=== PATIENT | female | born 1950 | race Two or more races ===

== ENCOUNTER 2016-11-27 06:01 | Observation (INO) | payer OTHER, BC ==
[2016-11-27] VITALS (11 sets, daily range): BP systolic 142–145; BP diastolic 66–99; PULSE 84–96; RESP 18; TEMP 98–98.5; O2SAT 93–96
[~2016-11-27] VITALS: Ht 162.6 cm; Wt 99.9 kg
[2016-11-27] MEDS ORDERED: LORazepam 1 MG TAB SL SCH (06:30)
[2016-11-27] MEDS ORDERED: INSULIN HUMAN REGULAR 1,000 UNITS/10 ML VIAL SQ PRN (06:30)
[2016-11-27] MEDS ORDERED: LACTATED RINGER'S 1000 ML IV SCH (06:30)
[2016-11-27] MEDS ORDERED: SODIUM CHLORID 0.9% 500 ML INJ 500 ML IV SCH (06:30)
[2016-11-27] MEDS ORDERED: SODIUM CHLORID 0.9% 500 ML IV SCH (06:30)
[2016-11-27 07:09] LABS: APTT (PATIENT) 30.8 SEC (24.3-30.1); BASOPHIL # 0.1 TH/MM3 (0-0.2); BASOPHIL % 0.7 % (0.0-2.0); EOSINOPHIL # 0.1 TH/MM3 (0-0.4); EOSINOPHIL % 1.7 % (0.0-4.0); HEMATOCRIT 45.1 % (35.0-46.0); HEMO FLAGS DIFF FINAL; LYMPH % 39.5 % (9.0-44.0); MEAN CELL VOLUME 83.3 FL (80.0-100.0); MEAN CORPUSCULAR HEMOGLOBIN 28.7 PG (27.0-34.0); MEAN CORPUSCULAR HGB CONC 34.4 % (32.0-36.0); MONO % 5.2 % (0.0-8.0); NEUT % 52.9 % (16.0-70.0); PLATELET COUNT 302 TH/MM3 (150-450); PROTHROMBIN TIME - PATIENT 10.5 SEC (9.8-11.6); RED BLOOD COUNT 5.41 MIL/MM3 (4.00-5.30); RED CELL DISTRIBUTION WIDTH 13.3 % (11.6-17.2); WHITE BLOOD COUNT 7.5 TH/MM3 (4.0-11.0)
[2016-11-27] MEDS ORDERED: PROTAMINE SULFATE 50 MG/5 ML VIAL ONE (07:12)
[2016-11-27] MEDS ORDERED: fentaNYL CITRATE 250 MCG/5 ML AMP ONE (07:12)
[2016-11-27] MEDS ORDERED: HEPARIN-D5W INJ 250 ML ONE (07:12)
[2016-11-27] MEDS ORDERED: FUROSEMIDE 40 MG/4 ML VIAL ONE (07:12)
[2016-11-27] MEDS ORDERED: ISOPROTERENOL HCL 1 MG/5 ML AMP ONE (07:12)
[2016-11-27] MEDS ORDERED: SODIUM CHLOR 0.9% 250 ML INJ 250 ML ONE (07:13)
[2016-11-27] MEDS ORDERED: HEPARIN SODIUM - IV 10,000 UNITS/10 ML VIAL ONE (07:13)
[2016-11-27] MEDS ORDERED: LEVOFLOXACIN 500 MG PREMIX INJ 100 ML IV SCH (07:15)
[2016-11-27 07:32] LABS: BICARBONATE 26.7 MEQ/L (21.0-32.0); POTASSIUM 3.7 MEQ/L (3.5-5.1)
[2016-11-27] MEDS ORDERED: MIDAZOLAM HCL 2 MG/2 ML VIAL ONE (07:35)
[2016-11-27] MEDS ORDERED: HEPARIN-NS/PF INJ 500 ML ONE (07:43)
[2016-11-27] MEDS ORDERED: MULT1TAB84 PO (08:11)
[2016-11-27] MEDS ORDERED: APIX5TAB PO (08:11)
[2016-11-27] MEDS ORDERED: LEVO75TA3 PO (08:11)
[2016-11-27] MEDS ORDERED: CHOL400D2 PO (08:11)
[2016-11-27] MEDS ORDERED: DILT1TAB4 PO (08:11)
[2016-11-27] MEDS ORDERED: ROSU20 PO (08:11)
--- NOTE | 2016-11-27 10:25 | PD.CARD ---
Atrial Fibrillation Ablation PROCEDURE DATE: Nov 27, 2016 PROCEDURES PERFORMED: 1. Electrophysiology study on Isuprel infusion 2. CS cannulation 3. 3-D mapping 4. Transseptal approach 5. Right and left heart catheterization 6. Intracardiac echo 7. Radiofrequency ablation of atrial fibrillation 8. Pulmonary vein isolation 9. Posterior wall ablation 10. Mitral line creation 11. Left atrial tachycardia ablation 12. Roof line creation 13. Floor line creation 14. Anterior and posterior wall ablation INDICATIONS FOR THE PROCEDURE Ms. Odom is a 66-year-old Other female with atrial fibrillation, on anticoagulation, multiple medications, very symptomatic who was referred for electrophysiology study and ablation. The risks, the nature and the benefits of the procedure were clearly stated to her. The risks include pneumothorax, cardiac perforation, stroke, need for open heart surgery and even . The patient understood and agreed to proceed. DESCRIPTION OF THE PROCEDURE IN DETAIL As written informed consent was obtained prior to esophageal echocardiogram, the patient was kept on the table where she was prepped and draped in the usual sterile fashion. Conscious sedation was initiated and maintained throughout the procedure by the anesthesiologist. Once sedation was verified, the right and left inguinal areas were anesthetized with 2% Xylocaine. Using modified Seldinger technique, the left femoral vein was cannulated on three occasions, three guidewires were advanced. Over the wire a 6, 7 and a 10-Brazilian Hemaquet were advanced. Then the left femoral artery was cannulated on one occasion, one guidewire was advanced. Over the wire a 4-Brazilian Hemaquet was advanced. Then the right femoral vein was cannulated on one occasion, one guidewire was advanced. Over the wire a 8-Brazilian Hemaquet was advanced. Then under fluoroscopic guidance through the 6 and 7-Brazilian Hemaquet, two 5-Brazilian Kyle curved quadripolar electrophysiology catheters were advanced and placed around the His as well as coronary sinus. Basic interval was measured. The patient was in atrial fibrillation. Through the 10-Brazilian Hemaquet, a Cordis Benavides AcuNav intracardiac echo catheter was advanced and placed at the right atrium. Multiple view was obtained. There is pericardial effusion, pulmonary vein was seen, atrial septal was visualized. Then the 8-Brazilian Hemaquet in the right femoral vein was exchanged for Agilis transseptal sheath that was placed all the way to the superior vena cava. Through the sheath a Babatunde needle was advanced, then the sheath, the dilator and the needle were progressed until foci engaged. Once engaged, the needle was advanced. RF was delivered for 2 seconds. I was able to cross into the left atrium. Once the needle crossed, the dilator was advanced. Once the dilator crossed, the sheath was advanced. Once the sheath crossed, the dilator and the needle were removed. At this point I did flush the system and fluid movement was seen in the left atrium the indicates the sheath is in good position. The patient already received 10,000 units of heparin. The goal is to keep an ACT around 350 during ablation. Then through the sheath a [place] 20 pulse circumferential catheter was advanced. Using [employer] endocardial solution mapping system, a two-dimensional configuration of the left atrium was obtained. Points were taken at the left superior and inferior veins, right superior and inferior veins, mitral valve, and appendages. Then through the sheath a [place]. [place] TactiCath 65cm 3.5mm irrigated tipped mapping and radiofrequency ablation catheter was advanced. Esophageal probe was placed temperature monitoring during ablation. When it increased to 0.5 degrees Celsius above baseline, I moved to a different area of the atrium. First I did isolate the left superior and inferior vein. I did make a big marshall around the veins. Posterior wall was ablated. A floor line was created. Patient was in atrial tach. During ablation, patient converted into sinus rhythm. Then a roof line was created, a mitral line was created earlier. Then the right superior and inferior veins were isolated. I did remap the atrium. I did advance the circumferential catheter again into the vein. There was no signal into the vein, pacing from the vein showed no conduction to the atrium. Isuprel infusion was initiated at 20 mcg for over 10 minutes. No tachyarrhythmia was induced, post Isuprel no tachyarrhythmia was induced. At that point the procedure was complete. All catheters were removed, atrial septal sheath was exchanged for 9-Brazilian Hemaquet, intracardiac echo showed no pericardial effusion. There is still good flow in the pulmonary vein. The patient is going to be transferred to the recovery room. No incident report. The patient tolerated the procedure. Blood loss was minimal. FINDINGS 1. Electrocardiogram: At baseline the patient was in atrial fibrillation, post procedure the patient was in sinus rhythm. 2. Basic interval: Base cycle length was around 580. Post ablation she was around 860 milliseconds. AH at 100 and HV at 45 milliseconds. 3. Tachyarrhythmia: Atrial fibrillation was mapped and ablated. Atrial tachycardia was ablated. The ablation was successful. CONCLUSION Successful electrophysiology study, mapping, radiofrequency ablation of atrial fibrillation, left atrial tachycardia, pulmonary vein isolation, posterior ablation, mitral line creation, roof line creation, floor line creation, left atrial tachycardia. COMMENTS AND RECOMMENDATIONS The patient is going to be transferred to the telemetry unit. Will be observed and when stable can be discharged home. Josep Medina MD Nov 27, 2016 10:25
[2016-11-27] MEDS ORDERED: SODIUM CHLOR 0.9% 250 ML INJ 250 ML IV PRN (10:30)
[2016-11-27] MEDS ORDERED: ATROPINE SULFATE 1 MG/ML VIAL IV PRN (10:30)
[2016-11-27] MEDS ORDERED: BACITRACIN OINT 0.9 GM PKT TOP ONE (10:30)
[2016-11-27] MEDS ORDERED: oxyCODONE/ACETAMINOPHEN 5 MG/325 MG TAB PO PRN ×2 (10:30)
[2016-11-27] MEDS ORDERED: LIDOCAINE HCL 1% 50 ML VIAL INFIL PRN (10:30)
[2016-11-27] MEDS ORDERED: METOCLOPRAMIDE HCL 10 MG/2 ML VIAL IV PRN (10:30)
[2016-11-27] MEDS ORDERED: ONDANSETRON HCL 4 MG/2 ML VIAL IV PRN (10:30)
[2016-11-27] MEDS ORDERED: LORazepam 2 MG/ML VIAL IV PRN (10:30)
--- NOTE | 2016-11-27 10:36 | ETE ---
Study Study Date:11/27/2016 STUDY CONCLUSIONS SUMMARY - Left ventricle: The cavity size was normal. Wall thickness was normal. Systolic function was normal. The estimated ejection fraction was in the range of 60% to 65%. Wall motion was normal; there were no regional wall motion abnormalities. - Aortic valve: No evidence of vegetation. - Mitral valve: No evidence of vegetation. - Left atrium: The atrium was moderately dilated. No evidence of thrombus in the atrial cavity or appendage. No evidence of thrombus in the atrial cavity or appendage. - Right atrium: No evidence of thrombus in the atrial cavity or appendage. - Atrial septum: No defect or patent foramen ovale was identified. Echo contrast study showed no [id number] atrial level shunt, at baseline or with provocation. - Tricuspid valve: No evidence of vegetation. - Pulmonic valve: No evidence of vegetation. If LV function is below 40, please consider prescribing an ACEI or ARB or document rationale for non-use. PROCEDURE DATA Consent: The risks, benefits, and alternatives to the procedure were explained to the patient and informed consent was obtained. Procedure: Initial setup. The patient was brought to the laboratory in the fasting state. Intravenous access was obtained. Surface ECG leads and pulse oximetric signals were monitored. Sedation. Conscious sedation was administered by cardiology staff. Transesophageal echocardiography. Topical anesthesia was obtained using viscous lidocaine. A transesophageal probe was inserted by the attending software quality analyst. Image quality was good. Study completion: All IVs inserted during the procedure were removed. The patient tolerated the procedure well. There were no complications. Transesophageal echocardiography. 2D, complete spectral Doppler, and color Doppler. CARDIAC ANATOMY LEFT VENTRICLE: The cavity size was normal. Wall thickness was normal. Systolic function was normal. The estimated ejection fraction was in the range of 60% to 65%. Wall motion was normal; there were no regional wall motion abnormalities. AORTIC VALVE: Trileaflet; moderately thickened, moderately calcified leaflets. Cusp separation was normal. No evidence of vegetation. Doppler: No significant regurgitation. Aorta: - There was no atheroma. There was no evidence for dissection. Aortic root: The aortic root was not dilated. Ascending aorta: The ascending aorta was normal in size. Aortic arch: The aortic arch was normal in size. Descending aorta: The descending aorta was normal in size. MITRAL VALVE: Structurally normal valve. Leaflet separation was normal. No evidence of vegetation. Doppler: No significant regurgitation. LEFT ATRIUM: The atrium was moderately dilated. No evidence of thrombus in the atrial cavity or appendage. No evidence of thrombus in the atrial cavity or appendage. The appendage was morphologically a left appendage, multilobulated, and of normal size. Emptying velocity was normal. ATRIAL SEPTUM: No defect or patent foramen ovale was identified. Echo contrast study showed no [id number] atrial level shunt, at baseline or with provocation. RIGHT VENTRICLE: The cavity size was normal. Wall thickness was normal. Systolic function was normal. PULMONIC VALVE: Structurally normal valve. No evidence of vegetation. TRICUSPID VALVE: Structurally normal valve. Leaflet separation was normal. No evidence of vegetation. Doppler: No significant regurgitation. PULMONARY ARTERY: The main pulmonary artery was normal-sized. RIGHT ATRIUM: The atrium was normal in size. No evidence of thrombus in the atrial cavity or appendage. The appendage was morphologically a right appendage. PERICARDIUM: There was no pericardial effusion. Prepared and signed by Josep Medina [id number]
[2016-11-27] MEDS ORDERED: *ONDANSETRON 4 MG VIAL PERIprocedural Use ONLY ONE (10:46)
[2016-11-27] MEDS ORDERED: *PROMETHAZINE 25 MG/ML VIAL PERIprocedural use ONLY ONE (11:00)
[2016-11-27] MEDS ORDERED: SODIUM CHLOR 0.9% 1000 ML BAG IV ONE (11:26)
[2016-11-27] MEDS ORDERED: PROPOFOL 200 MG/20 ML AMP IV ONE (11:26)
--- NOTE | 2016-11-27 12:35 | EKG ---
Date Performed: 11/27/2016 Time Performed: 07:08:58 PTAGE: 66 years EKG: Atrial fibrillation. Possible anteroseptal infarct - age undetermined Inferior/lateral T wa ve changes are nonspecific Abnormal ECG NO PREVIOUS TRACING DOCTOR: Fly Morton Interpretating Date/Time 11/27/2016 12:31:07
[2016-11-27] MEDS ORDERED: traMADol HCL 50 MG TAB PO PRN ×2 (12:45)
[2016-11-27] MEDS ORDERED: OXYC1TAB63 PO (18:39)
[2016-11-27] MEDS: AMIODARONE 200 MG TAB PO SCH (20:26)
[2016-11-27] MEDS: APIXABAN 5 MG TABLET PO SCH (20:26)
[2016-11-27] MEDS ORDERED: ACETAMINOPHEN/HYDROcodone 325 MG/10 MG TAB PO PRN ×2 (22:15)
[2016-11-28] VITALS (13 sets, daily range): BP systolic 106–110; BP diastolic 68–86; PULSE 76–104; RESP 18; TEMP 98.2–98.9; O2SAT 90–93
[2016-11-28] MEDS ORDERED: LEVOTHYROXINE SODIUM 75 MCG TAB PO SCH (06:00)
[2016-11-28] MEDS ORDERED: AMIO200T PO ×2 (08:03)
[2016-11-28] MEDS: APIXABAN 5 MG TABLET PO SCH (08:19)
[2016-11-28] MEDS: AMIODARONE 200 MG TAB PO SCH (08:20)
[2016-11-28] MEDS ORDERED: ATORVASTATIN 40 MG TAB PO SCH (09:00)
[2016-11-28] MEDS ORDERED: MULTIVITAMINS/MINERALS THERAPEUTIC TAB PO SCH (09:00)
--- NOTE | 2016-11-28 14:21 | EKG ---
Date Performed: 11/28/2016 Time Performed: 05:00:38 PTAGE: 66 years EKG: Atrial fibrillation Anterior T wave changes are nonspecific Low QRS voltages in precordial leads Compared to the previous tracing, atrial fibrillation has recurred Clinical correlation is carlos mmended Abnormal ECG PREVIOUS TRACING : 11/27/2016 11.43 DOCTOR: Edward Carreno Interpretating Date/Time 11/28/2016 14:21:17
--- NOTE | 2016-11-28 14:21 | EKG ---
Date Performed: 11/27/2016 Time Performed: 11:43:46 PTAGE: 66 years EKG: Sinus rhythm NONSPECIFIC T-WAVE ABNORMALITY BORDERLINE ECG Compared to the PREVIOUS TRACING , sinus rhythm has replaced atrial fibrillation PREVIOUS TRACIN2016 07.08 DOCTOR: Edward Carreno Interpretating Date/Time 11/28/2016 14:21:00
--- NOTE | 2016-11-28 15:17 | PD.CARD.PN ---
Subjective Subjective Remarks Feels ok. Objective Vital Signs / I&O Vital Signs Date Time Temp Pulse Resp B/P Pulse Ox O2 Delivery O2 Flow Rate FiO2 11/28/16 10:00 80 11/28/16 09:00 78 11/28/16 09:00 85 11/28/16 08:24 98.6 76 18 106/68 93 11/28/16 08:24 93 Room Air 11/28/16 08:00 83 11/28/16 07:00 85 11/28/16 06:30 84 11/28/16 05:00 78 11/28/16 04:00 76 11/28/16 03:23 Room Air 11/28/16 03:00 98.9 82 106/86 90 11/28/16 03:00 85 11/28/16 02:00 104 11/28/16 01:00 90 11/28/16 00:48 Room Air 11/28/16 00:38 98.2 91 110/78 91 11/28/16 00:00 90 11/27/16 23:00 92 11/27/16 22:00 96 11/27/16 21:00 94 11/27/16 20:00 90 11/27/16 19:00 98.5 92 142/66 93 11/27/16 19:00 Room Air 11/27/16 19:00 96 11/27/16 17:00 92 11/27/16 16:08 90 I/O 11/27/16 11/27/16 11/27/16 11/28/16 11/28/16 11/28/16 07:00 15:00 23:00 07:00 15:00 23:00 Intake Total 1700 ml 100 ml 240 ml 240 ml Output Total 480 ml 350 ml 350 ml Balance 1220 ml -250 ml -110 ml 240 ml Intake Oral 0 ml 100 ml 240 ml 240 ml IV Total 500 ml Other 1200 ml Output Urine Total 430 ml 350 ml 350 ml Estimated Blood Loss 50 ml # Voids 1 Physical Exam GENERAL: Well-nourished, well-developed patient. SKIN: Warm and dry. Groin sites soft, no bleeding, mild bruise on Left groin. HEAD: Normocephalic. EYES: No scleral icterus. No injection or drainage. NECK: Supple, trachea midline. No JVD or lymphadenopathy. CARDIOVASCULAR: Regular rate and rhythm without murmurs, gallops, or rubs. RESPIRATORY: Breath sounds equal bilaterally. No accessory muscle use. GASTROINTESTINAL: Abdomen soft, non-tender, nondistended. EXTREMITIES: No cyanosis, or edema. NEUROLOGICAL: Awake, alert, and oriented x 3. Non-focal. Assessment and Plan Problem List: (1) Atrial fibrillation Assessment and Plan: NSR on tele today. Initiate amiodarone per Dr. Medina. (2) S/P ablation of atrial fibrillation Assessment and Plan: Groin sites soft, ok to DC home. DC instructions d/w pt, RN. All questions answered. Assessment and Plan D/W Dr. Medina, pt., RN. Problem Qualifiers (1) Atrial fibrillation: Qualified Code: I48.0 - Paroxysmal atrial fibrillation Mary Perez Nov 28, 2016 15:17
[2016-12-02] MEDS ORDERED: AMIODARONE 200 MG TAB PO SCH (09:00)
== END 2016-11-28 11:38 | disposition home or self-care (01) ==
LOC: HDOC 06:01 → HDIC 06:01 → HCIS 13:51 → HDOC 18:29
PROVIDERS: ADMIT Internal Medicine Interventional Cardiology; ATTEND Internal Medicine Interventional Cardiology
DX: I48.0 Paroxysmal atrial fibrillation (principal); I31.3 Pericardial effusion (noninflammatory); E03.9 Hypothyroidism, unspecified; R73.03 Prediabetes; R06.02 Shortness of breath; Z79.01 Long term (current) use of anticoagulants
CPT/HCPCS: 80048; 85002; 85025; 85610; 85730; 86850; 86900; 86901; 93005; 93312; 93320; 93325; 93613; 93623; 93656; 93662; C1730; C1731; C1732; C1759; C1766; C2630; G0378; J1644; J1940; J1956; J2250; J2405; J2550; J2720; J3010; J7030; J7050

== ENCOUNTER 2016-12-01 11:07 | Observation (INO) | payer OTHER, BC ==
[~2016-12-01] VITALS: Ht 162.6 cm; Wt 100.0 kg
[~2016-12-01 11:07] MED LIST: AMIO200T PO; APIX5TAB PO; CHOL400D2 PO; LEVO75TA3 PO; MULT1TAB84 PO; OXYC1TAB63 PO; ROSU20 PO
[2016-12-01 11:10] VITALS: BP 170/97; PULSE 84; RESP 24; TEMP 97.8; O2SAT 93
[2016-12-01 11:35] VITALS: BP 160/88; PULSE 85; RESP 21; TEMP 98.4; O2SAT 96
[2016-12-01] MEDS ORDERED: SODIUM CHLORIDE 0.9% FLUSH 5 ML FLUSH IVF PRN (11:45)
--- NOTE | 2016-12-01 11:48 | PD ---
HPI Chief Complaint: Chest Pain Time Seen by Provider: 11:40 Travel History International Travel<30 days: No Contact w/Intl Traveler<30days: No Traveled to known affect area: No History of Present Illness HPI 66-year-old female presents to the emergency department for evaluation of chest tightness that started on Sunday, 2 days ago and shortness of breath that started yesterday. Patient states the chest tightness is worse with deep breathing. She states it radiates around the right side to the back. Patient reports cardiac ablation done on Sunday, [address] Medina for atrial fibrillation. She was also recently started on amiodarone. Patient also states she is on Eliquis and did not need to stop this for the procedure. She denies any history of DVT or PE. No recent travel. She has a cough, but no hemoptysis. She denies any leg edema. Patient does appear anxious on exam. She is on Crestor for hyperlipidemia. She denies any abdominal pain. No nausea or vomiting. No syncope. She does report some dizziness. PFSH Past Medical History Cancer: No Cardiovascular Problems: Yes Chest Pain: No Diabetes: Yes (PREDIABETIC) Gastrointestinal Disorders: No Glaucoma: No Hepatitis: No Hiatal Hernia: No Hypertension: No Respiratory: Yes (SOB) Integumentary: No Thyroid Disease: Yes (HYPOTHYROID) Social History Alcohol Use: No Tobacco Use: No Substance Use: No Allergies-Medications (Allergen,Severity, Reaction): Coded Allergies: Bactrim (Verified Allergy, Severe, 11/27/16) Percocet (Verified Adverse Reaction, Mild, Nausea/Vomiting, 11/27/16) Reported Meds & Prescriptions Reported Meds & Active Scripts Active Amiodarone (Amiodarone HCl) 200 Mg Tab 200 Mg PO DAILY 30 Days Amiodarone (Amiodarone HCl) 200 Mg Tab 400 Mg PO Q12HR 5 Days Reported Vitamin D (Cholecalciferol) 400 Unit/Ml Drops Unknown Dose PO DAILY Multivitamin Adults (Multiple Vitamins W/ Minerals) 1 Tab 1 Tab PO DAILY Levothyroxine (Levothyroxine Sodium) 75 Mcg Tab 75 Mcg PO DAILY Eliquis (Apixaban) 5 Mg Tab 5 Mg PO BID Crestor (Rosuvastatin Calcium) 20 Mg Tab 20 Mg PO DAILY Review of Systems Except as stated in HPI: all other systems reviewed are Neg Physical Exam Narrative GENERAL: Well-developed well-nourished female patient, ambulatory. Afebrile. Patient is anxious, crying because she states that she is scared of needles. SKIN: Warm and dry. Ecchymosis noted to groin, but tissues are soft. HEAD: Normocephalic. Atraumatic. EYES: No scleral icterus. No injection or drainage. NECK: Supple, trachea midline. No JVD or lymphadenopathy. CARDIOVASCULAR: Regular rate and rhythm without murmurs, gallops, or rubs. Bilateral radial and pedal pulses 2+. RESPIRATORY: Breath sounds equal bilaterally. No accessory muscle use. Lungs sounds are clear to auscultation. GASTROINTESTINAL: Abdomen soft, non-tender, nondistended. MUSCULOSKELETAL: No cyanosis, or edema. BACK: Nontender without obvious deformity. No CVA tenderness. Data Data Last Documented VS Vital Signs Date Time Temp Pulse Resp B/P Pulse Ox O2 Delivery O2 Flow Rate FiO2 12/01/16 12:06 96 12/01/16 12:05 184/88 163/96 12/01/16 12:01 Nasal Cannula 2 12/01/16 11:35 98.4 85 21 96 Orders Electrocardiogram (12/01/16 ) Basic Metabolic Panel (Bmp) (12/01/16 11:39) Ckmb (Isoenzyme) Profile (12/01/16 11:39) Complete Blood Count With Diff (12/01/16 11:39) Magnesium (Mg) (12/01/16 11:39) Prothrombin Time / Inr (Pt) (12/01/16 11:39) Act Partial Throm Time (Ptt) (12/01/16 11:39) Troponin I (12/01/16 11:39) Chest, Single Ap (12/01/16 11:39) Ecg Monitoring (12/01/16 11:39) Bilateral Bp Monitoring (12/01/16 11:39) Iv Access Insert/Monitor (12/01/16 11:39) Oximetry (12/01/16 11:39) Oxygen Administration (12/01/16 11:39) Sodium Chloride 0.9% Flush (Ns Flush) (12/01/16 11:45) Consult Cardiology (12/01/16 ) (Hub Use Only)Inp Phy Cons/Ref (12/01/16 ) Labs Laboratory Tests Test 3/3/17 12:20 White Blood Count 7.5 TH/MM3 Red Blood Count 4.89 MIL/MM3 Hemoglobin 14.0 GM/DL Hematocrit 40.6 % Mean Corpuscular Volume 83.0 FL Mean Corpuscular Hemoglobin 28.6 PG Mean Corpuscular Hemoglobin 34.5 % Concent Red Cell Distribution Width 13.2 % Platelet Count 299 TH/MM3 Mean Platelet Volume 8.1 FL Neutrophils (%) (Auto) 65.4 % Lymphocytes (%) (Auto) 27.3 % Monocytes (%) (Auto) 5.4 % Eosinophils (%) (Auto) 1.4 % Basophils (%) (Auto) 0.5 % Neutrophils # (Auto) 4.9 TH/MM3 Lymphocytes # (Auto) 2.0 TH/MM3 Monocytes # (Auto) 0.4 TH/MM3 Eosinophils # (Auto) 0.1 TH/MM3 Basophils # (Auto) 0.0 TH/MM3 CBC Comment DIFF FINAL Differential Comment Prothrombin Time 10.7 SEC Prothromb Time International 1.0 RATIO Ratio Activated Partial 30.1 SEC Thromboplast Time Sodium Level 140 MEQ/L Potassium Level 4.1 MEQ/L Chloride Level 103 MEQ/L Carbon Dioxide Level 27.2 MEQ/L Anion Gap 10 MEQ/L Blood Urea Nitrogen 12 MG/DL Creatinine 1.11 MG/DL Estimat Glomerular Filtration 49 ML/MIN Rate Random Glucose 132 MG/DL Calcium Level 9.5 MG/DL Magnesium Level 1.9 MG/DL Total Creatine Kinase 83 U/L Troponin I 0.18 NG/ML MDM Medical Decision Making Medical Screen Exam Complete: Yes Emergency Medical Condition: Yes Medical Record Reviewed: Yes Differential Diagnosis Anxiety versus ACS versus pneumonia versus pneumothorax versus pleurisy Narrative Course 66-year-old female presents to the emergency department for evaluation of chest tightness for 2 days that is worse with deep breathing as well as shortness of breath that started yesterday. Patient had cardiac ablation done on Sunday by Dr. Medina. EKG shows sinus rhythm, heart rate 85, no acute ST changes. CBC, BMP, CK, troponin, magnesium, PTT, PT/INR, chest x-ray are ordered and pending. CBC shows no acute abnormality. BMP shows creatinine of 1.11, glucose 132. CK is 83. Troponin is 0.18. Magnesium is 1.9. Coags are unremarkable. Chest x- ray shows no acute disease. Borderline cardiomegaly. Dr. Medina is paged. After multiple pages, he has not yet returned page. A consult is placed. Dr. Monte accepted admission. Diagnosis Primary Impression: Chest pain Qualified Code: R07.9 - Chest pain, unspecified type Additional Impression: Elevated troponin I level Admitting Information Admitting Physician Requests: Patsy Ferguson Dec 01, 2016 11:47
--- NOTE | 2016-12-01 12:04 | RADRPT ---
EXAM DATE/TIME: 12/01/2016 11:37 [facility] COMPARISON: No previous studies available for comparison. INDICATIONS : Pain in middle of chest for 3 days, former smoker, no chest surgery, patient is short of breath MEDICAL HISTORY : None. SURGICAL HISTORY : None. ENCOUNTER: Initial ACUITY: 3 days PAIN SCORE: 7/10 LOCATION: Bilateral chest FINDINGS: A single view of the chest demonstrates the lungs to be symmetrically aerated without evidence of mas s, infiltrate or effusion. Heart borderline enlarged. The cardiomediastinal contours are unremarkable . Osseous structures are intact. CONCLUSION: No acute disease. Borderline cardiomegaly. Denis Peralta MD on December 01, 2016 at 11:59 Board Certified Radiologist. This report was verified electronically.
[2016-12-01 12:05] VITALS: BP_SYST 163; BP_SYST 184; BP_DIAS 88; BP_DIAS 96
[2016-12-01 13:15] LABS: AUTOMATED NEUTROPHIL # 4.9 TH/MM3 (1.8-7.7); BASOPHIL % 0.5 % (0.0-2.0); EOSINOPHIL # 0.1 TH/MM3 (0-0.4); EOSINOPHIL % 1.4 % (0.0-4.0); HEMATOCRIT 40.6 % (35.0-46.0); HEMO FLAGS DIFF FINAL; LYMPH % 27.3 % (9.0-44.0); MEAN CORPUSCULAR HEMOGLOBIN 28.6 PG (27.0-34.0); MEAN CORPUSCULAR HGB CONC 34.5 % (32.0-36.0); MONO % 5.4 % (0.0-8.0); NEUT % 65.4 % (16.0-70.0); PLATELET COUNT 299 TH/MM3 (150-450); RED BLOOD COUNT 4.89 MIL/MM3 (4.00-5.30); RED CELL DISTRIBUTION WIDTH 13.2 % (11.6-17.2); WHITE BLOOD COUNT 7.5 TH/MM3 (4.0-11.0)
[2016-12-01 13:22] LABS: APTT (PATIENT) 30.1 SEC (24.3-30.1); PROTHROMBIN TIME - PATIENT 10.7 SEC (9.8-11.6)
[2016-12-01 13:33] LABS: BICARBONATE 27.2 MEQ/L (21.0-32.0); MAGNESIUM 1.9 MG/DL (1.5-2.5); POTASSIUM 4.1 MEQ/L (3.5-5.1)
--- NOTE | 2016-12-01 14:00 | PD ---
Physical Exam Narrative I, Dr. Moore, have reviewed the advance practice practitioner's documentation and am in agreement, met with the patient face to face, made the diagnosis, and the medical decision making was done by me. *My assessment and Findings: Chest pain r/o ACS 66yo F with PMH of HLD, afib s/p ablation by Dr. Fernandes 4 days ago presents to the ED with c/o chest pain for 2 days. Pain is midsternal, pressure like, intermittent and lasts few minutes at a time. Associated with sob. Denies any fever, vomiting, abdominal pain, focal weakness or numbness. States she never had chest pain like this before. Pt is a former cig smoker. Pt is on eliquis for afib and also was started on amiodarone. Pt currently does not have chest pain. Labs reviewed, no leukocytosis. Troponin is mildly elevated at 0.18. This may be normal from ablation 4 days ago but pt has new chest pain for 2 days. CXR showed no acute disease. Borderline cardiomegaly. I was not able to reach Dr. Fernandes so discussed with hospitalist to observe pt and obtain serial EKG and cardiac enzyme. Cardiology consult to be placed. Data Data Last Documented VS Vital Signs Date Time Temp Pulse Resp B/P Pulse Ox O2 Delivery O2 Flow Rate FiO2 12/01/16 12:06 96 12/01/16 12:05 184/88 163/96 12/01/16 12:01 Nasal Cannula 2 12/01/16 11:35 98.4 85 21 96 Orders Electrocardiogram (12/01/16 ) Basic Metabolic Panel (Bmp) (12/01/16 11:39) Ckmb (Isoenzyme) Profile (12/01/16 11:39) Complete Blood Count With Diff (12/01/16 11:39) Magnesium (Mg) (12/01/16 11:39) Prothrombin Time / Inr (Pt) (12/01/16 11:39) Act Partial Throm Time (Ptt) (12/01/16 11:39) Troponin I (12/01/16 11:39) Chest, Single Ap (12/01/16 11:39) Ecg Monitoring (12/01/16 11:39) Bilateral Bp Monitoring (12/01/16 11:39) Iv Access Insert/Monitor (12/01/16 11:39) Oximetry (12/01/16 11:39) Oxygen Administration (12/01/16 11:39) Sodium Chloride 0.9% Flush (Ns Flush) (12/01/16 11:45) Consult Cardiology (12/01/16 ) (Hub Use Only)Inp Phy Cons/Ref (12/01/16 ) Admit Order (Ed Use Only) (12/01/16 16:06) Labs Laboratory Tests Test 12/01/16 12:20 White Blood Count 7.5 TH/MM3 Red Blood Count 4.89 MIL/MM3 Hemoglobin 14.0 GM/DL Hematocrit 40.6 % Mean Corpuscular Volume 83.0 FL Mean Corpuscular Hemoglobin 28.6 PG Mean Corpuscular Hemoglobin 34.5 % Concent Red Cell Distribution Width 13.2 % Platelet Count 299 TH/MM3 Mean Platelet Volume 8.1 FL Neutrophils (%) (Auto) 65.4 % Lymphocytes (%) (Auto) 27.3 % Monocytes (%) (Auto) 5.4 % Eosinophils (%) (Auto) 1.4 % Basophils (%) (Auto) 0.5 % Neutrophils # (Auto) 4.9 TH/MM3 Lymphocytes # (Auto) 2.0 TH/MM3 Monocytes # (Auto) 0.4 TH/MM3 Eosinophils # (Auto) 0.1 TH/MM3 Basophils # (Auto) 0.0 TH/MM3 CBC Comment DIFF FINAL Differential Comment Prothrombin Time 10.7 SEC Prothromb Time International 1.0 RATIO Ratio Activated Partial 30.1 SEC Thromboplast Time Sodium Level 140 MEQ/L Potassium Level 4.1 MEQ/L Chloride Level 103 MEQ/L Carbon Dioxide Level 27.2 MEQ/L Anion Gap 10 MEQ/L Blood Urea Nitrogen 12 MG/DL Creatinine 1.11 MG/DL Estimat Glomerular Filtration 49 ML/MIN Rate Random Glucose 132 MG/DL Calcium Level 9.5 MG/DL Magnesium Level 1.9 MG/DL Total Creatine Kinase 83 U/L Troponin I 0.18 NG/ML [facility] Supervised Visit with PRIYANK: Yes Interpretation(s) EKG: NSR 85bpm. Normal axis. Q wave V1, V2. Low voltage. Diagnosis Primary Impression: Chest pain Qualified Code: R07.9 - Chest pain, unspecified type Additional Impression: Elevated troponin I level Admitting Information Admitting Physician Requests: Observation Scripts Omeprazole 40 Mg Cap40 Mg PO DAILY #30 CAP Ref 0 Prov:Ab Monte DO 12/01/16 Amiodarone 200 Mg [id number] Mg PO BID #4 TAB Ref 0 Prov:Ab Monte DO 12/01/16 Charlene Moore DO Dec 01, 2016 14:00
--- NOTE | 2016-12-01 16:51 | PD.CARD.PN ---
Subjective Subjective Remarks Pt reports CP relieved with walking and belching, also had a pleuritic CP that has resolved Objective Medications Current Medications Medications (Trade) Dose Ordered Sig/Flores Route Start Time Stop Time Status Last Admin (NS Flush) 2 ml UNSCH PRN IVF 12/01/16 11:45 (Synthroid) 75 mcg DAILY@0600 PO 12/02/16 06:00 (Theragran M Tab) 1 tab DAILY PO 12/02/16 09:00 (Lipitor) 40 mg DAILY PO 12/02/16 09:00 Vital Signs / I&O Vital Signs Date Time Temp Pulse Resp B/P Pulse Ox O2 Delivery O2 Flow Rate FiO2 12/01/16 12:06 96 12/01/16 12:05 184/88 163/96 12/01/16 12:01 Nasal Cannula 2 12/01/16 11:57 2 12/01/16 11:35 98.4 85 21 160/88 96 12/01/16 11:10 97.8 84 24 170/97 93 Room Air Physical Exam GENERAL: Well developed, well nourished. No acute distress. HEENT: Jugular venous pressure is normal. CHEST: Lungs clear to auscultation bilaterally. Unlabored respiratory effort. CARDIAC: Regular rate and rhythm without S3, S4, or murmur. ABDOMEN: Soft, nontender, no hepatosplenomegaly. Bowel sounds present. EXTREMITIES: No clubbing, cyanosis, or edema. Laboratory Laboratory Tests Test 12/01/16 12:20 White Blood Count 7.5 TH/MM3 Red Blood Count 4.89 MIL/MM3 Hemoglobin 14.0 GM/DL Hematocrit 40.6 % Mean Corpuscular Volume 83.0 FL Mean Corpuscular Hemoglobin 28.6 PG Mean Corpuscular Hemoglobin 34.5 % Concent Red Cell Distribution Width 13.2 % Platelet Count 299 TH/MM3 Mean Platelet Volume 8.1 FL Neutrophils (%) (Auto) 65.4 % Lymphocytes (%) (Auto) 27.3 % Monocytes (%) (Auto) 5.4 % Eosinophils (%) (Auto) 1.4 % Basophils (%) (Auto) 0.5 % Neutrophils # (Auto) 4.9 TH/MM3 Lymphocytes # (Auto) 2.0 TH/MM3 Monocytes # (Auto) 0.4 TH/MM3 Eosinophils # (Auto) 0.1 TH/MM3 Basophils # (Auto) 0.0 TH/MM3 CBC Comment DIFF FINAL Differential Comment Prothrombin Time 10.7 SEC Prothromb Time International 1.0 RATIO Ratio Activated Partial 30.1 SEC Thromboplast Time Sodium Level 140 MEQ/L Potassium Level 4.1 MEQ/L Chloride Level 103 MEQ/L Carbon Dioxide Level 27.2 MEQ/L Anion Gap 10 MEQ/L Blood Urea Nitrogen 12 MG/DL Creatinine 1.11 MG/DL Estimat Glomerular Filtration 49 ML/MIN Rate Random Glucose 132 MG/DL Calcium Level 9.5 MG/DL Magnesium Level 1.9 MG/DL Total Creatine Kinase 83 U/L Troponin I 0.18 NG/ML Imaging Last 72 hours Impressions Chest X-Ray 12/01/16 1139 Signed Impressions: Service Date/Time: Thursday, December 01, 2016 11:37 - CONCLUSION: No acute disease. Borderline cardiomegaly. Denis Peralta MD Assessment and Plan Assessment and Plan CP- relieved with belching, now resolved => not cardiac -recent normal nuc in Oct 2016 -elevated trop secondary to ablation Indigestion- decrease amio to 200 bid AF- s/p ablation, in NSR today Dispop- ok for d/c and follow up with Dr Medina per prior schedule Elizabeth Kemp MD Dec 01, 2016 16:51
--- NOTE | 2016-12-01 16:56 | HHI.DCPOC ---
Discharge Care Plan Diagnosis: (1) Elevated troponin I level (2) Chest pain (3) S/P ablation of atrial fibrillation Goals to Promote Your Health * To prevent worsening of your condition and complications * To maintain your health at the optimal level Directions to Meet Your Goals Take your medications as prescribed Follow your dietary instruction Follow activity as directed Keep your appointments as scheduled Take your immunizations and boosters as scheduled If your symptoms worsen call your PCP, if no PCP go to Urgent Care Center or Emergency Room Smoking is Dangerous to Your Health. Avoid second hand smoke Call the 24-hour hour crisis hotline for domestic abuse at Ab Monte DO Dec 01, 2016 16:56
[2016-12-01] MEDS ORDERED: AMIO200T PO (16:57)
--- NOTE | 2016-12-01 17:05 | HHI.HP ---
[facility] Primary Care Physician Non-Staff Admission Diagnosis Chest pain with elevated troponin Diagnoses: Chief Complaint: Chest pain Travel History International Travel<30 Days: No Contact w/Intl Traveler <30 Da: No Traveled to Known Affected Are: No History of Present Illness The patient is a 66-year-old female with past medical history of atrial fibrillation is presenting to the hospital with chest pain. The patient was recently in the hospital for ablation of atrial fibrillation on Sunday. She stayed overnight and was discharged home the following day. Since then she has developed chest pain in a bandlike distribution in the upper chest. She described the chest pain is mild. She also developed shortness of breath. Breathing deeply seemed to increase her chest pain. Her chest pain was an 8 out of 10 in severity at its worst. The patient noted that when she belched she felt better. She has also had sensations of lightheadedness. The patient' s symptoms of currently resolved. In the emergency department her troponin level was slightly elevated and cardiology was consulted. Cardiology reported that the patient's elevated troponin is not unexpected following an ablation and the patient was cleared for discharge home. The patient would like to go home at this time. Review of Systems Except as stated in HPI: all other systems reviewed are Neg Past Family Social History Past Medical History Atrial fibrillation status post ablation Hypothyroidism Hyperlipidemia Broken ribs Past Surgical History Anterior cruciate ligament surgery Hysterectomy Broken arm repair Allergies: Coded Allergies: Bactrim (Verified Allergy, Severe, 11/27/16) Percocet (Verified Adverse Reaction, Mild, Nausea/Vomiting, 11/27/16) Active Ordered Medications Current Medications Medications (Trade) Dose Ordered Sig/Flores Route Start Time Stop Time Status Last Admin (NS Flush) 2 ml UNSCH PRN IVF 12/01/16 11:45 (Synthroid) 75 mcg DAILY@0600 PO 12/02/16 06:00 (Theragran M Tab) 1 tab DAILY PO 12/02/16 09:00 (Lipitor) 40 mg DAILY PO 12/02/16 09:00 Family History Diabetes Hypertension CAD Colon cancer Social History The patient does not smoke. She also does not drink. Physical Exam Vital Signs Vital Signs Date Time Temp Pulse Resp B/P Pulse Ox O2 Delivery O2 Flow Rate FiO2 12/01/16 12:06 96 12/01/16 12:05 184/88 163/96 12/01/16 12:01 Nasal Cannula 2 12/01/16 11:57 2 12/01/16 11:35 98.4 85 21 160/88 96 12/01/16 11:10 97.8 84 24 170/97 93 Room Air Physical Exam GENERAL: This is a well-nourished, well-developed patient, in no apparent distress. SKIN: No rashes, ecchymoses or lesions. Cool and dry. HEAD: Atraumatic. Normocephalic. No temporal or scalp tenderness. EYES: Pupils equal round and reactive. Extraocular motions intact. No scleral icterus. No injection or drainage. ENT: Nose without bleeding, purulent drainage or septal hematoma. Throat without erythema, tonsillar hypertrophy or exudate. Uvula midline. Airway patent. NECK: Trachea midline. No JVD or lymphadenopathy. Supple, nontender, no meningeal signs. CARDIOVASCULAR: Regular rate and rhythm without murmurs, gallops, or rubs. RESPIRATORY: Clear to auscultation. Breath sounds equal bilaterally. No wheezes , rales, or rhonchi. GASTROINTESTINAL: Abdomen soft, non-tender, nondistended. No hepato-splenomegaly , or palpable masses. No guarding. MUSCULOSKELETAL: Extremities without clubbing, cyanosis, or edema. No joint tenderness, effusion, or edema noted. No calf tenderness. Negative Homans sign bilaterally. NEUROLOGICAL: Awake and alert. Cranial nerves II through XII intact. Motor and sensory grossly within normal limits. Five out of 5 muscle strength in all muscle groups. Normal speech. Laboratory Laboratory Tests Test 12/01/16 12:20 White Blood Count 7.5 Red Blood Count 4.89 Hemoglobin 14.0 Hematocrit 40.6 Mean Corpuscular Volume 83.0 Mean Corpuscular Hemoglobin 28.6 Mean Corpuscular Hemoglobin 34.5 Concent Red Cell Distribution Width 13.2 Platelet Count 299 Mean Platelet Volume 8.1 Neutrophils (%) (Auto) 65.4 Lymphocytes (%) (Auto) 27.3 Monocytes (%) (Auto) 5.4 Eosinophils (%) (Auto) 1.4 Basophils (%) (Auto) 0.5 Neutrophils # (Auto) 4.9 Lymphocytes # (Auto) 2.0 Monocytes # (Auto) 0.4 Eosinophils # (Auto) 0.1 Basophils # (Auto) 0.0 CBC Comment DIFF FINAL Differential Comment Prothrombin Time 10.7 Prothromb Time International 1.0 Ratio Activated Partial 30.1 Thromboplast Time Sodium Level 140 Potassium Level 4.1 Chloride Level 103 Carbon Dioxide Level 27.2 Anion Gap 10 Blood Urea Nitrogen 12 Creatinine 1.11 Estimat Glomerular Filtration 49 Rate Random Glucose 132 Calcium Level 9.5 Magnesium Level 1.9 Total Creatine Kinase 83 Troponin I 0.18 Result Diagram: 12/01/16 1220 12/01/16 1220 Imaging Last Impressions Chest X-Ray 12/01/16 1139 Signed Impressions: Service Date/Time: Thursday, December 01, 2016 11:37 - CONCLUSION: No acute disease. Borderline cardiomegaly. Denis Peralta MD Assessment and Plan Assessment and Plan Pleuritic chest pain/ elevated troponin/ heartburn The patient's troponin level was 0.18. That is not unusual per cardiology following and ablation. The patient's symptoms have resolved. She reports that belching helped the chest pain. Per cardiology amiodarone can cause symptoms of acid reflux. The patient had a recent stress test which was reportedly negative for ischemia. - Decrease amiodarone to 200 mg by mouth twice a day per cardiology. - start a PPI. - Outpatient follow-up with cardiology. Atrial fibrillation Currently in normal sinus rhythm. Status post ablation. - Continue Eliquis. Renal insufficiency Unsure of baseline. - Outpatient follow-up. PPx: Eliquis Code Status Full. Discussed Condition With Pt, pt's family, Dr. Kemp, Dr. Moore, nurse. Ab Monte DO Dec 01, 2016 17:05
[2016-12-01] MEDS ORDERED: OMEP40CA2 PO (17:06)
[2016-12-01 17:52] VITALS: BP 152/96
[2016-12-02] MEDS ORDERED: LEVOTHYROXINE SODIUM 75 MCG TAB PO SCH (06:00)
[2016-12-02] MEDS ORDERED: MULTIVITAMINS/MINERALS THERAPEUTIC TAB PO SCH (09:00)
[2016-12-02] MEDS ORDERED: ATORVASTATIN 40 MG TAB PO SCH (09:00)
--- NOTE | 2016-12-02 19:19 | EKG ---
Date Performed: 12/01/2016 Time Performed: 11:22:56 PTAGE: 66 years EKG: Sinus rhythm NONSPECIFIC T-WAVE ABNORMALITY Since previous tracing, no significant change noted BORDERLINE ECG PREVIOUS TRACING : 11/28/2016 05.00.38 DOCTOR: Rafael Stevenson Interpretating Date/Time 12/02/2016 19:17:54
== END 2016-12-01 17:52 | disposition home or self-care (01) ==
LOC: NEPC 11:07 → NEDA 16:07
PROVIDERS: ADMIT Hospitalist; ATTEND Hospitalist
DX: K30 Functional dyspepsia (principal); R14.2 Eructation; R06.02 Shortness of breath; R05 Cough; I48.91 Unspecified atrial fibrillation; E78.5 Hyperlipidemia, unspecified; R42 Dizziness and giddiness; R73.03 Prediabetes; E03.9 Hypothyroidism, unspecified; N28.9 Disorder of kidney and ureter, unspecified; R74.8 Abnormal levels of other serum enzymes; Z87.891 Personal history of nicotine dependence
CPT/HCPCS: 71010; 80048; 82550; 83735; 84484; 85025; 85610; 85730; 93005; 99285; G0378

== ENCOUNTER 2017-06-25 10:49 | Inpatient (IN) | payer OTHER, MEDICARE ==
[2017-06-25] VITALS (12 sets, daily range): BP systolic 108–138; BP diastolic 69–88; PULSE 64–133; RESP 19–27; TEMP 98.1–99.1; O2SAT 94–99
[~2017-06-25] VITALS: Ht 162.6 cm; Wt 101.5 kg
[~2017-06-25 10:49] MED LIST changes: +OMEP40CA2 PO; -OXYC1TAB63 PO
--- NOTE | 2017-06-25 11:16 | PD ---
HPI Chief Complaint: Chest Pain Time Seen by Provider: 11:16 Travel History International Travel<30 days: No Contact w/Intl Traveler<30days: No Traveled to known affect area: No History of Present Illness HPI 67-year-old female came to the emergency room with history of chest tightness, palpitations and shortness of breath. Patient says that she's been having the palpitations and shortness of breath since past 4 days. She does have a dial buffer Dr. Harris but did not call him or come to the emergency room. Today she went for a walk with her and after few steps got very short of breath and pain started radiate into her jaws. Her convinced her to come to the emergency room. He brought her here. Upon arrival patient's heart rate was in 130s. I looked at her EKG. Please refer to my EKG read. Patient was awake and answering questions appropriately. Oxygen saturation was within normal limits. She has history of atrial fibrillation and is on Eliquis. Patient says that she used to be on amiodarone was was taken off amiodarone 4 weeks ago for the procedure. [facility] Past Medical History Narrative Medical List of her past medical, surgical, social and family history is reviewed from the nursing note. Hx Anticoagulant Therapy: Yes Cancer: No Cardiovascular Problems: Yes (AFIB) Chest Pain: No Diabetes: Yes (PREDIABETIC) Gastrointestinal Disorders: No Glaucoma: No Hepatitis: No Hiatal Hernia: No Hypertension: No Respiratory: Yes (SOB) Integumentary: No Thyroid Disease: Yes (HYPOTHYROID) Past Surgical History Hysterectomy: Yes Social History Alcohol Use: No Tobacco Use: No Substance Use: No Allergies-Medications (Allergen,Severity, Reaction): Coded Allergies: sulfamethoxazole (Unverified Allergy, Severe, 06/25/17) trimethoprim (Unverified Allergy, Severe, 06/25/17) acetaminophen (Unverified Adverse Reaction, Mild, Nausea/Vomiting, 06/25/17 ) oxycodone (Unverified Adverse Reaction, Mild, Nausea/Vomiting, 06/25/17) Comments List of her allergies reviewed from the nursing note. Reported Meds & Prescriptions Reported Meds & Active Scripts Active Reported Levothyroxine (Levothyroxine Sodium) 75 Mcg Tab 88 Mcg PO DAILY Eliquis (Apixaban) 5 Mg Tab 5 Mg PO BID Crestor (Rosuvastatin Calcium) 20 Mg Tab 20 Mg PO DAILY Narrative Medication list of her home medications reviewed from the nursing note. Review of Systems Except as stated in HPI: all other systems reviewed are Neg Physical Exam Narrative GENERAL: Awake, alert, obese, anxious, mild distress SKIN: Focused skin assessment warm/dry. HEAD: Atraumatic. Normocephalic. EYES: Pupils equal and round. No scleral icterus. No injection or drainage. ENT: No nasal bleeding or discharge. Mucous membranes pink and moist. NECK: Trachea midline. No JVD. CARDIOVASCULAR: Regular rate and rhythm. Tachycardia. No murmur appreciated. RESPIRATORY: No accessory muscle use. Clear to auscultation. Breath sounds equal bilaterally. GASTROINTESTINAL: Abdomen soft, non-tender, nondistended. Hepatic and splenic margins not palpable. MUSCULOSKELETAL: No obvious deformities. No clubbing. No cyanosis. No edema. NEUROLOGICAL: Awake and alert. No obvious cranial nerve deficits. Motor grossly within normal limits. Normal speech. PSYCHIATRIC: Appropriate mood and affect; insight and judgment normal. Data Data Last Documented VS Orders Orders Electrocardiogram (06/25/17 11:19) Basic Metabolic Panel (Bmp) (06/25/17 11:19) Ckmb (Isoenzyme) Profile (06/25/17 11:19) Complete Blood Count With Diff (06/25/17 11:19) Magnesium (Mg) (06/25/17 11:19) Prothrombin Time / Inr (Pt) (06/25/17 11:19) Act Partial Throm Time (Ptt) (06/25/17 11:19) Troponin I (06/25/17 11:19) Chest, Single Ap (06/25/17 11:19) Ecg Monitoring (06/25/17 11:19) Bilateral Bp Monitoring (06/25/17 11:19) Iv Access Insert/Monitor (06/25/17 11:19) Oximetry (06/25/17 11:19) Oxygen Administration (06/25/17 11:19) Sodium Chloride 0.9% Flush (Ns Flush) (06/25/17 11:30) Ondansetron Inj (Zofran Inj) (06/25/17 11:30) Diltiazem Inj (Cardizem Inj) (06/25/17 11:30) Diltiazem Inj (Cardizem Inj) (06/25/17 11:19) Vital Signs (Adult) Q15MX4,Q4H (06/25/17 11:25) Cardiac Rhythm DAX.Q8H (06/25/17 11:25) Notify Dr: Other (06/25/17 11:25) Diltiazem Inj (Cardizem Inj) (06/25/17 11:30) Electrocardiogram (06/25/17 ) CKMB (06/25/17 11:20) CKMB% (06/25/17 11:20) Admit Order (Ed Use Only) (06/25/17 12:44) Labs Laboratory Tests Test 06/25/17 11:20 White Blood Count 6.4 TH/MM3 Red Blood Count 4.76 MIL/MM3 Hemoglobin 14.5 GM/DL Hematocrit 42.2 % Mean Corpuscular Volume 88.7 FL Mean Corpuscular Hemoglobin 30.6 PG Mean Corpuscular Hemoglobin Concent 34.4 % Red Cell Distribution Width 12.5 % Platelet Count 263 TH/MM3 Mean Platelet Volume 7.8 FL Neutrophils (%) (Auto) 55.7 % Lymphocytes (%) (Auto) 37.4 % Monocytes (%) (Auto) 5.8 % Eosinophils (%) (Auto) 0.7 % Basophils (%) (Auto) 0.4 % Neutrophils # (Auto) 3.6 TH/MM3 Lymphocytes # (Auto) 2.4 TH/MM3 Monocytes # (Auto) 0.4 TH/MM3 Eosinophils # (Auto) 0.0 TH/MM3 Basophils # (Auto) 0.0 TH/MM3 CBC Comment DIFF FINAL Differential Comment Prothrombin Time 11.0 SEC Prothromb Time International Ratio 1.0 RATIO Activated Partial Thromboplast Time 32.4 SEC Blood Urea Nitrogen 15 MG/DL Creatinine 1.24 MG/DL Random Glucose 121 MG/DL Calcium Level 9.2 MG/DL Magnesium Level 2.0 MG/DL Sodium Level 140 MEQ/L Potassium Level 4.2 MEQ/L Chloride Level 106 MEQ/L Carbon Dioxide Level 26.6 MEQ/L Anion Gap 7 MEQ/L Estimat Glomerular Filtration Rate 43 ML/MIN Total Creatine Kinase 117 U/L Creatine Kinase MB 1.7 NG/ML Troponin I LESS THAN 0.02 NG/ML MDM Medical Decision Making Medical Screen Exam Complete: Yes Emergency Medical Condition: Yes Medical Record Reviewed: Yes Interpretation(s) Twelve-lead EKG was reviewed by me. Atrial flutter with 2-1 block, normal axis. Heart rate of 131 bpm. Differential Diagnosis Atrial flutter, atrial fibrillation, RVR Narrative Course 12:40 PM patient was given 20 mg of IV Cardizem which brought the heart rate down to the 80s to 90s. Underlying atrial fibrillation with variable block was unmasked. Patient was started on Cardizem drip. I just went back and reassessed her and she says she feels much better. Blood test results of back and within acceptable limits. I discussed the case with Dr. Harris who wants Dr. Medina to be consulted. I discussed the case with the hospitalist was accepted it. Patient will go to CICU given the Cardizem drip. Critical Care Narrative Aggregate critical care time was 30 minutes. Time to perform other separately billable procedures was not included in the critical care time. My time did not include minutes spent treating any other patients simultaneously or on activities that did not directly contribute to the patient's treatment. The services I provided to this patient were to treat and/or prevent clinically significant deterioration that could result in: Atrial flutter, 2-1 block, Cardizem drip I provided critical care services requiring my management, as noted below: Chart data review, documentation time, medication orders and management, vital sign assessments/reviewing monitor data, ordering and reviewing lab tests, ordering and interpreting/reviewing x-rays and diagnostic studies, care of the patient and discussion of the patient with the admitting physicians. Procedures EKG Prior to Arrival: No Physician Communication Physician Communication Dr. Harris Diagnosis Primary Impression: Atrial fibrillation and flutter Additional Impression: Atrial fibrillation with RVR Admitting Information Admitting Physician Requests: Admit Scripts Metoclopramide (Metoclopramide) 5 Mg Tab 5 MG PO TID Y for NAUSEA, #30 TAB 0 Refills Prov: Jose King MD 06/28/17 Amiodarone (Amiodarone) 200 Mg Tab 200 MG PO DAILY for heart rate, #30 TAB start after 400 mg regimen completed Prov: Jose King MD 06/28/17 Amiodarone (Amiodarone) 200 Mg Tab 400 MG PO BID for heart rhythm, #10 TAB Prov: Jose King MD 06/28/17 Paul Estrada MD Jun 25, 2017 11:16
[2017-06-25] MEDS ORDERED: DILTIAZEM HCL 25 MG/5 ML VIAL ONE (11:19)
[2017-06-25] MEDS ORDERED: DILTIAZEM HCL 25 MG/5 ML VIAL IV ONE (11:30)
[2017-06-25] MEDS ORDERED: ONDANSETRON HCL 4 MG/2 ML VIAL IV PUSH ONE (11:30)
[2017-06-25] MEDS ORDERED: SODIUM CHLORIDE 0.9% FLUSH 10 ML FLUSH IVF PRN (11:30)
[2017-06-25 11:40] LABS: AUTOMATED NEUTROPHIL # 3.6 TH/MM3 (1.8-7.7); BASOPHIL % 0.4 % (0.0-2.0); EOSINOPHIL % 0.7 % (0.0-4.0); HEMATOCRIT 42.2 % (35.0-46.0); HEMO FLAGS DIFF FINAL; LYMPH % 37.4 % (9.0-44.0); LYMPHOCYTE # 2.4 TH/MM3 (1.0-4.8); MEAN CELL VOLUME 88.7 FL (80.0-100.0); MEAN CORPUSCULAR HEMOGLOBIN 30.6 PG (27.0-34.0); MEAN CORPUSCULAR HGB CONC 34.4 % (32.0-36.0); MONO % 5.8 % (0.0-8.0); NEUT % 55.7 % (16.0-70.0); PLATELET COUNT 263 TH/MM3 (150-450); RED BLOOD COUNT 4.76 MIL/MM3 (4.00-5.30); RED CELL DISTRIBUTION WIDTH 12.5 % (11.6-17.2); WHITE BLOOD COUNT 6.4 TH/MM3 (4.0-11.0)
[2017-06-25 11:50] LABS: APTT (PATIENT) 32.4 SEC (24.3-30.1)
[2017-06-25 12:07] LABS: ANION GAP 7 MEQ/L (5-15); BICARBONATE 26.6 MEQ/L (21.0-32.0); BLOOD UREA NITROGEN 15 MG/DL (7-18); CHLORIDE 106 MEQ/L (98-107); GLOMERULAR FILTRATION RATE 43 ML/MIN (>89); POTASSIUM 4.2 MEQ/L (3.5-5.1); SODIUM (NA) 140 MEQ/L (136-145)
[2017-06-25 12:11] LABS: CREATINE KINASE 117 U/L (26-192)
[2017-06-25] MEDS: DILTIAZEM INJ 125 MG in SODIUM CHLORIDE 0.9% INJ 100 ML IV PRN (12:13)
[2017-06-25 12:24] LABS: CKMB 1.7 NG/ML (0.5-3.6)
--- NOTE | 2017-06-25 13:20 | RADRPT ---
EXAM DATE/TIME: 06/25/2017 11:56 [facility] COMPARISON: CHEST SINGLE AP, December 01, 2016, 11:37. INDICATIONS : Chest pain, shortness of breath. MEDICAL HISTORY : A-fib. SURGICAL HISTORY : None. ENCOUNTER: Initial ACUITY: 1 day PAIN SCORE: 4/10 LOCATION: Bilateral chest FINDINGS: A single view of the chest demonstrates the lungs to be symmetrically aerated without evidence of mas s, infiltrate or effusion. The cardiomediastinal contours are unremarkable. Osseous structures are intact. CONCLUSION: 1. No acute cardiopulmonary findings. Rigoberto Richter MD on June 25, 2017 at 13:15 Board Certified Radiologist. This report was verified electronically.
--- NOTE | 2017-06-25 13:59 | HHI.HP ---
HPI Service [facility] Hospitalists Primary Care Physician Unknown Admission Diagnosis atrial flutter, RVR, atrial fibrillation Diagnoses: Chief Complaint: Chest pain dyspnea dizziness nausea Travel History International Travel<30 Days: No Contact w/Intl Traveler <30 Da: No Traveled to Known Affected Are: No History of Present Illness Written by JOCELYN Balrow acting as scribe for Dr. Sanford on at 13:44. This is a 67yo female with a PMHX significant for atrial fibrillation on Eliquis s/p ablation 11/2016, prediabetes, hypothyroidism and HLD who presents to [facility] with complaints of chest pain, palpitations, dizziness, dyspnea and nausea occurring intermittently for the past week which became much more severe this past Sunday. Patient states she went for a walk with her this morning and after walking on 30 yards she had to stop due to severe shortness of breath. She reports associated sharp chest pain with radiation into the jaw and pressure like sensation in the throat. She also reports a headache. Patient denies any recent illness, fever or chills. In the ED, she was found to be in atrial fibrillation with RVR with HR of 131. Patient was started on Cardizem drip with improvement in her HR. Patients initial troponin was <0.02. Patient states she feels much better now. She denies any complaints at present. Dr. Estrada spoke with Dr. Harris the patients director channel who has recommended the patient been seen in consultation by Dr. Medina. Patient states she was previously on Amiodarone but has been off that medication for the past 3 months. Review of Systems Except as stated in HPI: all other systems reviewed are Neg Past Family Social History Past Medical History Atrial fibrillation s/p ablation 11/2016 on Eliquis Prediabetes HLD Hypothyroidism Past Surgical History s/p cardiac ablation 11/[address] Medina Hysterectomy ACL repair Broken arm repair bladder lift Reported Medications Vitamin D (Cholecalciferol) 400 Unit/Ml Drops Unknown Dose PO DAILY Multivitamin Adults (Multiple Vitamins W/ Minerals) 1 Tab 1 Tab PO DAILY Levothyroxine (Levothyroxine Sodium) 75 Mcg Tab 75 Mcg PO DAILY Eliquis (Apixaban) 5 Mg Tab 5 Mg PO BID Crestor (Rosuvastatin Calcium) 20 Mg Tab 20 Mg PO DAILY Allergies: Coded Allergies: sulfamethoxazole (Unverified Allergy, Severe, 06/25/17) trimethoprim (Unverified Allergy, Severe, 06/25/17) acetaminophen (Unverified Adverse Reaction, Mild, Nausea/Vomiting, 06/25/17 ) oxycodone (Unverified Adverse Reaction, Mild, Nausea/Vomiting, 06/25/17) Active Ordered Medications Current Medications Medications (Trade) Dose Ordered Sig/Flores Route Start Time Stop Time Status Last Admin (NS Flush) 2 ml UNSCH PRN IVF 06/25/17 11:30 Diltiazem HCl 125 mg/Sodium Chloride 125 ml @ 5 mls/hr TITRATE PRN IV 06/25/17 11:30 06/25/17 12:13 Family History DM HTN Parents, brother - CAD Sister - colon cancer Social History Patient has a remote hx of tobacco use having quit in 1993. She reports occasional alcohol use. She denies any illicit drug use. She is and lives with her . Physical Exam Vital Signs Vital Signs Date Time Temp Pulse Resp B/P (MAP) Pulse Ox O2 Delivery O2 Flow Rate FiO2 06/25/17 12:13 89 06/25/17 11:26 99 Room Air 06/25/17 11:24 93 110/75 (87) 06/25/17 11:15 131 138/87 (104) 06/25/17 11:12 Room Air 06/25/17 10:51 98.4 133 19 135/87 (103) 96 Physical Exam GENERAL: This is a well-nourished, well-developed obese patient, in no apparent distress. Awake and alert. Appears comfortable. is at the bedside. SKIN: No rashes, ecchymoses or lesions. Cool and dry. HEAD: Atraumatic. Normocephalic. No temporal or scalp tenderness. EYES: Pupils equal round and reactive. Extraocular motions intact. No scleral icterus. No injection or drainage. ENT: Nose without bleeding, purulent drainage. Throat without erythema, tonsillar hypertrophy or exudate. Uvula midline. Airway patent. NECK: Trachea midline. No lymphadenopathy. Supple, nontender, no meningeal signs. CARDIOVASCULAR: Irregular without murmurs, gallops, or rubs. RESPIRATORY: Clear to auscultation. Breath sounds equal bilaterally. No wheezes , rales, or rhonchi. GASTROINTESTINAL: Abdomen soft, non-tender, nondistended. No hepato-splenomegaly , or palpable masses. No guarding. MUSCULOSKELETAL: Extremities without clubbing, cyanosis, or edema. No joint tenderness, effusion, or edema noted. No calf tenderness. NEUROLOGICAL: Awake and alert. Able to move all extremities. Normal speech. Laboratory Laboratory Tests Test 06/25/17 11:20 White Blood Count 6.4 Red Blood Count 4.76 Hemoglobin 14.5 Hematocrit 42.2 Mean Corpuscular Volume 88.7 Mean Corpuscular Hemoglobin 30.6 Mean Corpuscular Hemoglobin Concent 34.4 Red Cell Distribution Width 12.5 Platelet Count 263 Mean Platelet Volume 7.8 Neutrophils (%) (Auto) 55.7 Lymphocytes (%) (Auto) 37.4 Monocytes (%) (Auto) 5.8 Eosinophils (%) (Auto) 0.7 Basophils (%) (Auto) 0.4 Neutrophils # (Auto) 3.6 Lymphocytes # (Auto) 2.4 Monocytes # (Auto) 0.4 Eosinophils # (Auto) 0.0 Basophils # (Auto) 0.0 CBC Comment DIFF FINAL Differential Comment Prothrombin Time 11.0 Prothromb Time International Ratio 1.0 Activated Partial Thromboplast Time 32.4 Blood Urea Nitrogen 15 Creatinine 1.24 Random Glucose 121 Calcium Level 9.2 Magnesium Level 2.0 Sodium Level 140 Potassium Level 4.2 Chloride Level 106 Carbon Dioxide Level 26.6 Anion Gap 7 Estimat Glomerular Filtration Rate 43 Total Creatine Kinase 117 Creatine Kinase MB 1.7 Troponin I LESS THAN 0.02 Result Diagram: 06/25/17 1120 06/25/17 1120 Imaging Last Impressions Chest X-Ray 06/25/17 1119 Signed Impressions: Service Date/Time: Sunday, June 25, 2017 11:56 - CONCLUSION: 1. No acute cardiopulmonary findings. MD Neri Monterroso VTE Risk Assessment Caphector VTE Risk Assessment: Mod/High Risk (score >= 2) Caprini Risk Assessment Model Point Value = 1 Point Value = 2 Point Value = 3 Point Value = 5 Age 41-60 Minor surgery BMI > 25 kg/m2 Swollen legs Varicose veins or History of unexplained or recurrent spontaneous Oral contraceptives or hormone replacement Sepsis (< 1 month) Serious lung disease, including pneumonia (< 1 month) Abnormal pulmonary function Acute myocardial infarction Congestive heart failure (< 1 month) History of inflammatory bowel disease Medical patient at bed rest Age 61-74 Arthroscopic surgery Major open surgery (> 45 min) Laparoscopic surgery (> 45 min) Malignancy Confined to bed (> 72 hours) Immobilizing plaster cast Central venous access Age >= 75 History of VTE Family history of VTE Factor V Leiden Prothrombin [id number] Lupus anticoagulant Anticardiolipin antibodies Elevated serum homocysteine Heparin-induced thrombocytopenia Other congenital or acquired thrombophilia Stroke (< 1 month) Elective arthroplasty Hip, pelvis, or leg fracture Acute spinal cord injury (< 1 month) Prophylaxis Regimen Total Risk Factor Score Risk Level Prophylaxis Regimen 0-1 Low Early ambulation 2 Moderate Order ONE of the following: *Sequential Compression Device (SCD) *Heparin 5000 units SQ BID 3-4 Higher Order ONE of the following medications: *Heparin 5000 units SQ TID *Enoxaparin/Lovenox 40 mg SQ daily (WT < 150 kg, CrCl > 30 mL/min) *Enoxaparin/Lovenox 30 mg SQ daily (WT < 150 kg, CrCl > 10-29 mL/min) *Enoxaparin/Lovenox 30 mg SQ BID (WT < 150 kg, CrCl > 30 mL/min) AND/OR *Sequential Compression Device (SCD) 5 or more Highest Order ONE of the following medications: *Heparin 5000 units SQ TID (Preferred with Epidurals) *Enoxaparin/Lovenox 40 mg SQ daily (WT < 150 kg, CrCl > 30 mL/min) *Enoxaparin/Lovenox 30 mg SQ daily (WT < 150 kg, CrCl > 10-29 mL/min) *Enoxaparin/Lovenox 30 mg SQ BID (WT < 150 kg, CrCl > 30 mL/min) AND *Sequential Compression Device (SCD) Assessment and Plan Assessment and Plan 67yo female with a PMHX significant for atrial fibrillation on Eliquis s/p ablation 11/2016, prediabetes, hypothyroidism and HLD who presents to [facility] with complaints of chest pain, palpitations, dizziness, dyspnea and nausea occurring intermittently for the past week which became much more severe this past Sunday. Atrial fibrillation with RVR: rate now controlled - continue on Cardizem drip - EKG personally reviewed showing atrial flutter - CXR personally interpreted showing no acute cardiopulmonary process - potassium 4.2, mag level 2.0 - Consult Dr. Medina - initial troponin < 0.02. Continue to cycle cardiac enzymes - continuous cardiac monitoring - continue patient on home dose of Eliquis MIRIAM on ?CKD - creatinine 1.24 - unknown baseline but two other values in our system 12/15 1.11 and 11/17 1.14 - avoid nephrotoxic agents - monitor BMP Hypothyroidism - resume patients home dose of Levothyroxine - obtain TSH level HLD - continue patient on home statin therapy DVT prophylaxis - patient is on Eliquis This note was transcribed by manuelito Thompson. I, Dr. Enmanuel Sanford personally performed the history, physical exam, and medical decision making; and confirmed the accuracy of the information in the transcribed note. Authenticated by Dr. Enmanuel Sanford on 06/25/17 at 14:13. Discussed Condition With ED physician, nursing staff, patient and Physician Certification 2 Midnight Certification Type: Admission for Inpatient Services Order for Inpatient Services The services are ordered in accordance with Medicare regulations or non- Medicare payer requirements, as applicable. In the case of services not specified as inpatient-only, they are appropriately provided as inpatient services in accordance with the 2-midnight benchmark. Estimated LOS (days): 3 3 days is the estimated time the patient will need to remain in the hospital, assuming treatment plan goals are met and no additional complications. Post-Hospital Plan: Not yet determined Katia Thompson Jun 25, 2017 13:59 Enmanuel Sanford MD Jun 25, 2017 14:13
[2017-06-25] MEDS ORDERED: BISACODYL 10 MG SUPP RECTAL PRN (14:15)
[2017-06-25] MEDS ORDERED: ONDANSETRON HCL 4 MG/2 ML VIAL IVP PRN (14:15)
[2017-06-25] MEDS ORDERED: ACETAMINOPHEN 325 MG TAB PO PRN (14:15)
[2017-06-25] MEDS ORDERED: SODIUM CHLORIDE 0.9% FLUSH 10 ML FLUSH IV FLUSH PRN (14:15)
[2017-06-25] MEDS ORDERED: LACTULOSE SYRUP 20 GM/30 ML CUP PO PRN (14:15)
[2017-06-25] MEDS ORDERED: SENNOSIDES 8.6 MG TAB PO PRN (14:15)
[2017-06-25] MEDS ORDERED: MAGNESIUM HYDROXIDE SUSP 30 ML CUP PO PRN (14:15)
[2017-06-25] MEDS ORDERED: NALOXONE HCL 0.4 MG/ML AMP IV PUSH PRN (14:15)
[2017-06-25] MEDS ORDERED: CHLORHEXIDINE GLUCONATE 2 % 1 PACK (2 CLOTHS)(extra cloths) TOPICAL PRN (18:00)
[2017-06-25] MEDS: APIXABAN 5 MG TABLET PO SCH (20:45)
[2017-06-25] MEDS: SODIUM CHLORIDE 0.9% FLUSH 10 ML FLUSH IV FLUSH SCH (20:45)
[2017-06-25 21:34] LABS: CREATINE KINASE 101 U/L (26-192)
[2017-06-25] MEDS ORDERED: ZOLPIDEM TARTRATE 5 MG TAB PO ONE (23:45)
[2017-06-26] VITALS (14 sets, daily range): BP systolic 106–151; BP diastolic 59–97; PULSE 62–107; RESP 18–31; TEMP 97–98.2; O2SAT 92–98
[2017-06-26] MEDS: CHLORHEXIDINE GLUCONATE 2 % 1 PACK (2 CLOTHS)(taper/protocol) TOPICAL SCH (04:00)
[2017-06-26 04:19] LABS: BICARBONATE 31.1 MEQ/L (21.0-32.0); POTASSIUM 4.4 MEQ/L (3.5-5.1)
[2017-06-26 04:36] LABS: CREATINE KINASE 93 U/L (26-192)
[2017-06-26] MEDS: LEVOTHYROXINE SODIUM 88 MCG TAB PO SCH (05:30)
--- NOTE | 2017-06-26 06:20 | MB ---
cc: AJIT HATFIELD HANSCY M.D. DATE OF CONSULTATION 06/25/2017 REASON FOR CONSULTATION Atrial fibrillation, left atrial tachyarrhythmia with fast ventricular response. HISTORY OF PRESENT ILLNESS Mrs. Odom is a 67-year-old female with history of atrial fibrillation. She has previous ablation around November of 2016. She was asymptomatic until yesterday night and began with tachyarrhythmia. She decided to come to the emergency room. She was symptomatic. She was having shortness of breath and was found in atrial fibrillation with fast ventricular response, was admitted. Cardizem was initiated. Heart rate very difficult to control. I was consulted for evaluation and management. The chart was reviewed. The patient was evaluated. ALLERGIES SULFAMETHOXAZOLE TRIMETHOPRIM. ACETAMINOPHEN. OXYCODONE. SOCIAL HISTORY Negative for smoking and drinking. FAMILY HISTORY Noncontributory to her current medical condition. MEDICATIONS 1. Lipitor 40 mg a day. 2. Levoxyl 80 mg a day. 3. Eliquis 5 mg twice a day. 4. Cardizem IV. REVIEW OF SYSTEMS She refers no chest pain or chest discomfort. Some palpitations and shortness of breath but no vomiting. No fever. PHYSICAL EXAMINATION GENERAL: Alert, fully oriented. VITAL SIGNS: Blood pressure 108/78, pulse 110, respiratory rate 18. LUNGS: Ventilated. CARDIOVASCULAR: S1-S2, irregular, tachycardic. ABDOMEN: Soft. No mass. EXTREMITIES: No edema. ELECTROCARDIOGRAM Shows atrial fibrillation, possible left atrial tachyarrhythmia. LABORATORY DATA Hemoglobin is 14.5, white blood cell 6.4. Potassium 4.2, creatinine 1.24. Troponin less is less than 0.02. INR 1.0. ASSESSMENT AND RECOMMENDATIONS Mrs. Odom has atrial fibrillation, atrial tachycardia with fast ventricular response. Heart rate very difficult to control. She has previous ablation, is most likely left atrial tachycardia. At this point I am going to observe her. If heart rate cannot be controlled, then ablation will be considered. Case extensively discussed with her. I will closely monitor her during her hospitalization. Josep Medina MD HS/SSB /8:44 PM /6:09 AM
--- NOTE | 2017-06-26 08:39 | HHI.PR ---
Subjective Remarks Follow up a-fib with RVR. Patient denies chest pain, dyspnea. States that she feels much better than she did yesterday morning. Heart rate control is improved on cardizem drip. Objective Vitals Vital Signs Date Time Temp Pulse Resp B/P (MAP) Pulse Ox O2 Delivery O2 Flow Rate FiO2 06/26/17 06:00 81 06/26/17 04:03 98.2 63 27 106/59 (75) 98 06/26/17 04:00 62 06/26/17 02:00 64 06/26/17 00:00 79 06/26/17 00:00 98.1 79 19 151/97 (115) 95 06/25/17 22:00 64 06/25/17 20:02 98.1 90 24 125/76 (92) 95 06/25/17 20:00 118 06/25/17 18:19 110 27 108/78 (88) 96 06/25/17 18:00 94 06/25/17 17:20 99.1 94 22 119/88 (98) 94 06/25/17 17:20 94 06/25/17 17:10 06/25/17 15:17 92 22 120/69 (86) 96 Room Air 06/25/17 14:56 96 21 06/25/17 12:13 89 06/25/17 11:26 99 Room Air 06/25/17 11:24 93 110/75 (87) 06/25/17 11:15 131 138/87 (104) 06/25/17 11:12 Room Air 06/25/17 10:51 98.4 133 19 135/87 (103) 96 I/O 06/25/17 06/25/17 06/25/17 06/26/17 06/26/17 06/26/17 07:00 15:00 23:00 07:00 15:00 23:00 Intake Total 560 ml 326 ml Balance 560 ml 326 ml Intake Oral 560 ml 240 ml IV Total 86 ml # Voids 1 Result Diagram: 06/25/17 1120 06/26/17 0323 Imaging Last Impressions Chest X-Ray 06/25/17 1119 Signed Impressions: Service Date/Time: Sunday, June 25, 2017 11:56 - CONCLUSION: 1. No acute cardiopulmonary findings. Rigoberto Richter MD Objective Remarks General: Obese female in no acute distress. Heart: Irregularly irregular rhythm. Lungs: Clear to auscultation bilaterally. No wheezes, rales, or rhonchi. Breathing is nonlabored. Abdomen: Soft, nontender, nondistended. Extremities: No lower extremity edema. Psych: Alert and oriented. Procedures None Urinary Catheter: No Vascular Central Line Catheter: No A/P Problem List: (1) Acute kidney injury ICD Code: N17.9 - Acute kidney failure, unspecified (2) Hypothyroidism ICD Code: E03.9 - Hypothyroidism, unspecified (3) Hyperlipidemia ICD Code: E78.5 - Hyperlipidemia, unspecified (4) Atrial fibrillation with RVR ICD Code: I48.91 - Unspecified atrial fibrillation Status: Acute (5) Atrial fibrillation and flutter ICD Code: I48.91 - Unspecified atrial fibrillation; I48.92 - Unspecified atrial flutter Status: Acute (6) Chest pain ICD Code: R07.9 - Chest pain, unspecified Status: Acute Assessment and Plan 1. A-fib with RVR: On diltiazem drip. Rate is controlled. Will start oral Cardizem and wean off drip. Appreciate cardiology recommendations. Continue Eliquis. 2. Acute kidney injury: Creatinine remains elevated. Uncertain what patient's baseline is. Monitor labs. 3. Hypothyroidism: Continue Synthroid. TSH is elevated. 4. Hyperlipidemia: Continue statin. 5. DVT prophylaxis: Eliquis. Enmanuel Sanford MD Jun 26, 2017 08:39
[2017-06-26] MEDS: SODIUM CHLORIDE 0.9% FLUSH 10 ML FLUSH IV FLUSH SCH ×2 (08:56→21:16)
[2017-06-26] MEDS: DILTIAZEM HCL 30 MG TAB PO SCH ×4 (08:57→21:16)
[2017-06-26] MEDS: APIXABAN 5 MG TABLET PO SCH ×2 (08:57→21:16)
[2017-06-26] MEDS: ATORVASTATIN 40 MG TAB PO SCH (08:57)
[2017-06-26] MEDS: DILTIAZEM INJ 125 MG in SODIUM CHLORIDE 0.9% INJ 100 ML IV PRN (08:59)
[2017-06-26 10:49] LABS: HEMOGLOBIN A1a 1.1 %; HEMOGLOBIN A1b 0.9 %; HEMOGLOBIN Ao 84.1 %; HEMOGLOBIN F 1.3 %; HEMOGLOBIN LA1C 2.1 %; HEMOGLOBIN P3 4.1 %
--- NOTE | 2017-06-26 12:33 | EKG ---
Date Performed: 06/25/2017 Time Performed: 11:12:32 PTAGE: 67 years EKG: ATRIAL FLUTTER/TACHYCARDIA WITH RAPID VENTRICULAR RESPONSE INTRAVENTRICULAR CONDUCTION MACKENZIE Y ABNORMAL ECG PREVIOUS TRACING 12/01/16 Atrial flutter is new from the prior tracing DOCTOR: Nash Harris Interpretating Date/Time 06/26/2017 12:31:31
--- NOTE | 2017-06-26 12:33 | EKG ---
Date Performed: 06/25/2017 Time Performed: 11:28:12 PTAGE: 67 years EKG: ATRIAL fibrillation with controlled ventricular rate ABNORMAL RHYTHM ECG PREVIOUS TRACING : 12/01/2016 11.22 Patient is no longer in 2:1 flutter compared to the prior t racing. DOCTOR: Nash Harris Interpretating Date/Time 06/26/2017 12:32:13
--- NOTE | 2017-06-26 12:34 | EKG ---
Date Performed: 06/25/2017 Time Performed: 17:25:53 PTAGE: 67 years EKG: ATRIAL fibrillation with controlled ventricular rate ABNORMAL RHYTHM ECG PREVIOUS TRACING : 06/25/2017 11.28 Compared to prior tracing no significant change DOCTOR: Nash Harris Interpretating Date/Time 06/26/2017 12:32:30
--- NOTE | 2017-06-26 12:34 | EKG ---
Date Performed: 06/25/2017 Time Performed: 22:31:41 PTAGE: 67 years EKG: Atrial fibrillation with controlled ventricular rate ABNORMAL RHYTHM ECG PREVIOUS TRACING : 06/25/2017 17.25 Compared to prior tracing no significant change DOCTOR: Nash Harris Interpretating Date/Time 06/26/2017 12:32:46
[2017-06-26] MEDS ORDERED: ZOLPIDEM TARTRATE 5 MG TAB PO ONE (20:15)
--- NOTE | 2017-06-26 23:22 | HHI.PR ---
Subjective Remarks Tired Objective Vital Signs Date Time Temp Pulse Resp B/P (MAP) Pulse Ox O2 Delivery O2 Flow Rate FiO2 06/26/17 22:05 96 06/26/17 20:01 98.2 107 18 125/81 (96) 95 06/26/17 20:01 107 06/26/17 19:04 86 06/26/17 16:00 98.1 87 31 119/65 (83) 96 06/26/17 16:00 82 06/26/17 14:00 86 06/26/17 12:00 96 06/26/17 12:00 97.6 90 20 112/84 (93) 96 06/26/17 12:00 90 112/84 06/26/17 10:00 91 06/26/17 08:59 94 120/75 06/26/17 08:54 92 21 06/26/17 08:00 97.0 70 20 120/75 (90) 96 06/26/17 08:00 98 06/26/17 06:00 81 06/26/17 04:03 98.2 63 27 106/59 (75) 98 06/26/17 04:00 62 06/26/17 02:00 64 06/26/17 00:00 79 06/26/17 00:00 98.1 79 19 151/97 (115) 95 I/O 06/26/17 06/26/17 06/26/17 06/27/17 06/27/17 06/27/17 06:59 14:59 22:59 06:59 14:59 22:59 Intake Total 326 ml 140 ml 960 ml Output Total 1000 ml Balance 326 ml 140 ml -40 ml Intake Oral 240 ml 960 ml IV Total 86 ml 140 ml Output Urine Total 1000 ml # Voids 1 Result Diagram: 06/25/17 1120 06/26/17 0323 Imaging Alert, fully oriented Lungs: ventilated Heart: S1, S2 irregular, tachycardia Abdomen: soft, no mass Ext: no edema Last Impressions Chest X-Ray 06/25/17 1119 Signed Impressions: Service Date/Time: Sunday, June 25, 2017 11:56 - CONCLUSION: 1. No acute cardiopulmonary findings. Rigoberto Richter MD Current Medications Medications (Trade) Dose Ordered Sig/Flores Route Start Time Stop Time Status Last Admin (NS Flush) 2 ml UNSCH PRN IVF 06/25/17 11:30 Diltiazem HCl 125 mg/Sodium Chloride 125 ml @ 5 mls/hr TITRATE PRN IV 06/25/17 11:30 06/26/17 08:59 (NS Flush) 2 ml BID IV FLUSH 06/25/17 21:00 06/26/17 21:16 (Tylenol) 650 mg Q4H PRN PO 06/25/17 14:15 (Zofran Inj) 4 mg Q6H PRN IVP 06/25/17 14:15 (Narcan Inj) 0.4 mg UNSCH PRN IV PUSH 06/25/17 14:15 (Milk Of Magnesia Liq) 30 ml Q12H PRN PO 06/25/17 14:15 (Senokot) 17.2 mg Q12H PRN PO 06/25/17 14:15 (Dulcolax Supp) 10 mg DAILY PRN RECTAL 06/25/17 14:15 (Lactulose Liq) 30 ml DAILY PRN PO 06/25/17 14:15 (Eliquis) 5 mg BID PO 06/25/17 21:00 06/26/17 21:16 (Synthroid) 88 mcg DAILY@0600 PO 06/26/17 06:00 06/26/17 05:30 (Lipitor) 40 mg DAILY PO 06/26/17 09:00 06/26/17 08:57 Miscellaneous Information Patient in critical care unit? Ass... [id number] 06/25/17 18:00 (Chlorhexidine 2% Cloth) 3 pack DAILY@04 TOPICAL 06/26/17 04:00 06/30/17 04:01 06/26/17 04:00 (Chlorhexidine 2% Cloth) 3 pack UNSCH PRN TOPICAL 06/25/17 18:00 06/30/17 17:53 (Cardizem) 30 mg QID PO 06/26/17 09:00 06/26/17 21:16 Assessment and Plan Problem List: (1) Atrial fibrillation with RVR ICD Codes: I48.91 - Unspecified atrial fibrillation Status: Acute Plan: In atrial fibrillation with FVR. HR cannot be controlled despite multiple medications EPS and ablation discussed with her Patient understand and agree to proceed. Josep Medina MD Jun 26, 2017 23:22
[2017-06-27] VITALS (21 sets, daily range): BP systolic 106–146; BP diastolic 75–95; PULSE 64–124; RESP 18–20; TEMP 97.6–98.4; O2SAT 93–99
[2017-06-27] MEDS: CHLORHEXIDINE GLUCONATE 2 % 1 PACK (2 CLOTHS)(taper/protocol) TOPICAL SCH (04:00)
[2017-06-27] MEDS: LEVOTHYROXINE SODIUM 88 MCG TAB PO SCH (06:00)
[2017-06-27] MEDS: ATORVASTATIN 40 MG TAB PO SCH (07:57)
[2017-06-27] MEDS: DILTIAZEM HCL 30 MG TAB PO SCH ×2 (07:57→13:13)
[2017-06-27] MEDS: SODIUM CHLORIDE 0.9% FLUSH 10 ML FLUSH IV FLUSH SCH ×2 (07:57→21:00)
[2017-06-27] MEDS ORDERED: LORazepam 0.5 MG TAB PO PRN (08:15)
--- NOTE | 2017-06-27 11:52 | HHI.PR ---
Subjective Remarks Follow up a-fib. Rate is increased again this morning. Patient denies chest pain , dyspnea. States that she feels "great". Objective Vitals Vital Signs Date Time Temp Pulse Resp B/P (MAP) Pulse Ox O2 Delivery O2 Flow Rate FiO2 06/27/17 08:05 112 06/27/17 08:03 95 Room Air 06/27/17 08:00 120 20 146/95 (112) 95 06/27/17 07:00 110 06/27/17 06:01 89 06/27/17 04:04 97.8 92 18 131/92 (105) 97 06/27/17 04:04 89 06/27/17 02:33 99 06/27/17 02:01 89 06/27/17 00:18 Bi-Pap 06/27/17 00:01 67 06/27/17 00:01 97.6 114 18 135/92 (106) 99 06/26/17 22:05 96 06/26/17 20:01 98.2 107 18 125/81 (96) 95 06/26/17 20:01 107 06/26/17 19:04 86 06/26/17 16:00 98.1 87 31 119/65 (83) 96 06/26/17 16:00 82 06/26/17 14:00 86 06/26/17 12:00 96 06/26/17 12:00 97.6 90 20 112/84 (93) 96 06/26/17 12:00 90 112/84 I/O 06/26/17 06/26/17 06/26/17 06/27/17 06/27/17 06/27/17 07:00 15:00 23:00 07:00 15:00 23:00 Intake Total 326 ml 140 ml 960 ml 480 ml Output Total 1000 ml 600 ml Balance 326 ml 140 ml -40 ml -120 ml Intake Oral 240 ml 960 ml 480 ml IV Total 86 ml 140 ml Output Urine Total 1000 ml 600 ml # Voids 1 # Bowel Movements 0 Result Diagram: 06/25/17 1120 06/26/17 0323 Imaging Last Impressions Chest X-Ray 06/25/17 1119 Signed Impressions: Service Date/Time: Sunday, June 25, 2017 11:56 - CONCLUSION: 1. No acute cardiopulmonary findings. Rigoberto Richter MD Objective Remarks General: Obese female in no acute distress. Heart: Irregularly irregular rhythm, tachycardic. Lungs: Clear to auscultation bilaterally. No wheezes, rales, or rhonchi. Breathing is nonlabored. Abdomen: Soft, nontender, nondistended. Extremities: No lower extremity edema. Psych: Alert and oriented. Procedures None Urinary Catheter: No Vascular Central Line Catheter: No A/P Problem List: (1) Acute kidney injury ICD Code: N17.9 - Acute kidney failure, unspecified (2) Hypothyroidism ICD Code: E03.9 - Hypothyroidism, unspecified (3) Hyperlipidemia ICD Code: E78.5 - Hyperlipidemia, unspecified (4) Atrial fibrillation with RVR ICD Code: I48.91 - Unspecified atrial fibrillation Status: Acute (5) Atrial fibrillation and flutter ICD Code: I48.91 - Unspecified atrial fibrillation; I48.92 - Unspecified atrial flutter Status: Acute (6) Chest pain ICD Code: R07.9 - Chest pain, unspecified Status: Acute Assessment and Plan 1. A-fib with RVR: Appreciate cardiology recommendations. Rate is elevated again today. Restart Cardizem drip. Scheduled for ablation today. 2. Acute kidney injury: Creatinine remains elevated. Uncertain what patient's baseline is. Labs are pending today. 3. Hypothyroidism: Continue Synthroid. TSH is elevated. 4. Hyperlipidemia: Continue statin. 5. DVT prophylaxis: Eliquis. Enmanuel Sanford MD Jun 27, 2017 11:52
[2017-06-27] MEDS ORDERED: ROCURONIUM INJ 50 MG/5 ML SYRINGE IV PUSH ONE (12:00)
[2017-06-27] MEDS ORDERED: PHENYLEPH/NS 1000 MCG/10 ML SYR IV ONE (12:00)
[2017-06-27] MEDS ORDERED: NEOSTIGMINE 3 MG/3 ML SYR IV ONE (12:00)
[2017-06-27] MEDS ORDERED: ONDANSETRON HCL 4 MG/2 ML VIAL IV PUSH ONE (12:00)
[2017-06-27] MEDS ORDERED: PROPOFOL 200 MG/20 ML AMP IV ONE (12:00)
[2017-06-27] MEDS ORDERED: MIDAZOLAM HCL 2 MG/2 ML VIAL IV ONE (12:00)
[2017-06-27] MEDS ORDERED: GLYCOPYRROLATE 1 MG/5 ML SYRINGE IV PUSH ONE (12:00)
[2017-06-27] MEDS ORDERED: DILTIAZEM INJ 125 MG in SODIUM CHLORIDE 0.9% INJ 100 ML IV PRN (12:45)
[2017-06-27] MEDS ORDERED: SODIUM CHLOR 0.9% 250 ML INJ 250 ML ONE (15:23)
[2017-06-27] MEDS ORDERED: HEPARIN-D5W 25,000 U/250 ML 250 ML ONE (15:23)
[2017-06-27] MEDS ORDERED: LEVOFLOXACIN 500 MG PREMIX INJ 100 ML IV ONE (15:23)
[2017-06-27] MEDS ORDERED: ISOPROTERENOL HCL 1 MG/5 ML AMP ONE (15:23)
[2017-06-27] MEDS ORDERED: HEPARIN SODIUM - IV 10,000 UNITS/10 ML VIAL ONE ×2 (15:23→16:54)
[2017-06-27] MEDS ORDERED: HEPARIN-NS/PF INJ 1,000 ML ONE (15:55)
[2017-06-27] MEDS ORDERED: PROTAMINE SULFATE 50 MG/5 ML VIAL ONE (17:17)
[2017-06-27] MEDS ORDERED: ONDANSETRON HCL 4 MG/2 ML VIAL IV PUSH PRN (17:30)
[2017-06-27] MEDS ORDERED: LIDOCAINE HCL 1% 50 ML VIAL INFIL PRN (17:30)
[2017-06-27] MEDS ORDERED: LORazepam 2 MG/ML VIAL IV PUSH PRN (17:30)
[2017-06-27] MEDS ORDERED: ATROPINE SULFATE 1 MG/ML VIAL IV PUSH PRN (17:30)
[2017-06-27] MEDS ORDERED: SODIUM CHLOR 0.9% 250 ML INJ 250 ML IV PRN (17:30)
[2017-06-27] MEDS ORDERED: oxyCODONE/ACETAMINOPHEN 5 MG/325 MG TAB PO PRN ×2 (17:30)
[2017-06-27] MEDS ORDERED: BACITRACIN OINT 0.9 GM PKT TOP ONE (17:30)
--- NOTE | 2017-06-27 17:31 | CATHPROC ---
[employer] HIS Report Study Information Study Number Scheduled Start Study Start [id number] 06/27/2017 Jun 27 2017 10:15AM Referring Institution Admit Source Facility Department 1 Other [facility] - Early Interventionist Physician and Clinical Staff Initial Josep Camara [address] Bailiff Rebecca Catherine,RT(R) TECH2 Other Anesthesia, IUSS ANALYST Other Marlene, Anu,PAINTER FOREMAN TECH2 Recorder Gunjan Chowdhury BSRN Scrub Batt, Dale,RT(R) Procedures Performed Procedure Location (Site) Vessel Name Ablation Procedure ICE CATHETER INSERT RA Atruim Equipment Time Energy Sales Broker Description Size Mfg Part Number Used/Scraped NEEDLE, TRANSSEPTAL NRG 98 10:21 [facility] [id number] Used C1 [employer]/ EP 10:21 KIT, TRANSDUCER / AFIB [id number] Used PACER [id number] CATHETER, TACTICATH ABLAT BUNDLE 10:21 [facility] Used 65 BUNDLE *[id number] BUNDLE [id number] CATHETER, FR7 OPTIMA SPIRAL 10:21 B[facility] FR7 *[id number] Used BUNDLE BUNDLE [id number] 10:21 BUND[facility] CATHETER, JSN, QUAD BUNDLE FR 5 *[id number]- Used BUNDLE [id number] 10:21 BUND[facility] CATHETER, JSN, QUAD BUNDLE FR 5 *[id number]- Used BUNDLE [id number] SET, COOL POINT TUBING 10:21 BUNDLE-[facility] *[id number]- Used BUNDLE BUNDLE SHEATH, FR8.5 STEERABLE SM 10:21 BUND[facility] 71CM [id number] Used 71CM BUNDLE COVER, TRANSDUCER CABLE 10:21 [employer] [id number] Used ACUNAV 10:21 CORDIS/PACER SHEATH, FR10 SRI 11CM FR 10 [id number] Used 10:21 CORDIS/PACER SHEATH, FR9 SRI 11CM FR 9 [id number] Used [id number] 10:21 [employer] IND[employer]RIES PACK, CCL CUSTOM * Used *[id number] 10:21 [employer] PACER [place]REGON, LIMB * [id number] *[id number] Used [id number] 10:21 [email or web address] MEDICAL SHEATH, FR4.5 PRELUDE 11CM FR 4.5 Used [id number] 10:21 NAMIC TUBING, HIGH PRESSURE 48" 48" Used *[id number] 10:21 NAMIC TUBING, HIGH PRESSURE 48" 48" Used *[id number] 10:21 MARCANO MEDICAL BLANKET,WARM AIR CCL * Used *[id number] 10:21 [facility] MEDICAL ELECTRODE KIT, ALONZO X SURFACE * [id number] Used [id number] 10:21 [facility] MEDICAL SHEATH, EPS, FR6 FAST CATH FR 6 Used *[id number] 10:21 [facility] MEDICAL SHEATH, EPS, FR7 FAST CATH FR 7 [id number] Used [id number] 10:21 [facility] MEDICAL SHEATH, EPS, FR8 FAST CATH FR 8 Used *[id number] CATHETER, ACUNAV FR10 ICE [id number] 16:10 VICKIE FR 10 Used (VICKIE) *[id number] [facility] PAD, ELECTROSURGICAL 10:21 * [id number] *[id number] Used SURGICAL GROUNDING (BLUE) History: Current Medications Medication Dosage/Unit Route Frequency Last Date/Time Taken LIPITOR CARDIZEM ELIQUIS History: Allergies Allergy Reaction Tylenol Oxycodone Sulfa Drugs Trimethoprim History: Risk Factors Family History of Dyslipidemia Premature CAD Yes Yes Chronic Lung Disease History: Symptoms/Diagnosis Selection Items Palpitations SOB Labs Hgb (g/dl) Hct (%) RBC (MIL/MM3) WBC (l/cumm) Platelets (thousands) 11.60-17.00 35.00-51.00 4.00-5.90 4.00-11.00 150.00-450.00 14.5 42.2 4.7 6.4 263 Glucose (mg/dl) BUN (mg/dl) Creatinine (mg/dl) BUN:Creatinine (1:x) 74.00-106.00 7.00-18.00 0.50-1.30 10.00-20.00 108 17 1.2 14.2 Na (meq/l) K (meq/l) Cl (meq/l) CO2 (mmol/L) Ca (mg/dl) 136.00-145.00 3.50-5.10 98.00-107.00 21.00-32.00 8.50-10.10 142 4.4 105 31.1 9.4 INR (PTT:PT) 0.90-1.10 1 Medication Medication Total Dose (Bolus/Oral) Medication Total Dosage/Unit 1% XYLOCAINE 40 mL HEPARIN 12115 units PROTAMINE 40 mg Medications (Bolus/Oral) Medication Time Given Dosage/Unit Administered By Reason 1% XYLOCAINE 06/27/2017 3:57:59 PM 20 mL Anesthesia, IUSS ANALYST For pain 20 mL 1% XYLOCAINE given in lab by Anesthesia, IUSS ANALYST in Left Groin via Subcutaneous. Ordered by Josep Medina. Reason: For pain. 1% XYLOCAINE 06/27/2017 3:59:43 PM 20 mL Anesthesia, IUSS ANALYST As per physicians v erbal order 20 mL 1% XYLOCAINE given in lab by Anesthesia, IUSS ANALYST in Right Groin via Subcutaneous. Ordered by Josep Medina. Reason: As per physicians verbal order. HEPARIN 06/27/2017 4:14:04 PM 88228 units Anesthesia, IUSS ANALYST As per physicians verbal order 07421 units HEPARIN given in lab by Anesthesia, IUSS ANALYST in Right Antecubital via Peripheral IV. Ordered by Josep Medina. Reason: As per physicians verbal order. HEPARIN 06/27/2017 4:54:12 PM 2000 units Anesthesia, IUSS ANALYST As per physicians verbal order 2000 units HEPARIN given in lab by Anesthesia, IUSS ANALYST in Right Antecubital via Peripheral IV. Ordered b Josep Beasley. Reason: As per physicians verbal order. PROTAMINE 06/27/2017 5:18:00 PM 40 mg Anesthesia, IUSS ANALYST As per physicians ve rbal order 40 mg PROTAMINE given in lab by Anesthesia, IUSS ANALYST in Right Antecubital via Peripheral IV. Ordered by Josep Santa. Reason: As per physicians verbal order. Medication (Drip) Medication Time Given Dosage/Unit Concentration/Unit Diluent (ml) Solution HEPARIN DRIP 06/27/2017 4:29:19 PM 500 units/hr 73477 units 250 D5W 500 units/hr HEPARIN DRIP given in lab by Anesthesia, IUSS ANALYST in Right Antecubital via Peripheral IV. Pu mp/Drip Flow = 5 ml/hr [place] [address] units in 250 ml. Ordered by Josep Medina. ISUPREL 06/27/2017 5:06:56 PM 20 mcg/min 1 mg 250 NaCl .9 20 mcg/min ISUPREL given in lab by Anesthesia, IUSS ANALYST in Right Antecubital via Peripheral IV. Pump/Drip Flow = 300 ml/hr using NaCl .9 with a concentration of 1 mg in 250 ml. Ordered by Josep Medina. Reason: As per physicians verbal order. IV Solutions 06/27/2017 3:32:16 PM 0 mL (IV) NaCl .9 IV Solutions given in lab by Gunjan Chowdhury BSRN in Left Antecubital via Peripheral IV. Pump/Drip Flow = 50 ml/hr using NaCl .9. Ordered by Josep Medina. Reason: As per physicians verbal order. IV Solutions 06/27/2017 3:32:43 PM 0 mL (IV) NaCl .9 IV Solutions given in lab by Gunjan Chowdhury BSRN in Right Antecubital via Peripheral IV. Pump/Drip Flow = 50 ml/hr using NaCl .9. Ordered by Josep Medina. Reason: As per physicians verbal order. LEVAQUIN 06/27/2017 3:50:56 PM 100 mL/hr 500 100 NaCl .9 100 mL/hr LEVAQUIN given in lab by INGRIS Espinal in Right Antecubital via Peripheral IV. Pump/Drip Flow = 0 ml/hr using NaCl .9 with a concentration of 500 in 100 ml. Ordered by Josep Medina. Reason: As per physicians verbal order. Initial Case Assessment Cardiovascular HR NIBP 125 135/83 Edema Present Skin color Skin None Normal Warm Dry Neurological State Oriented to time-place- Alert Moves all extremities person Respiration - General Respiration Rate SpO2 (%) (B/min) 20 96 Final Case Assessment Cardiovascular HR NIBP 109 102/67 Edema Present Skin color Skin None Normal Warm Dry Circulatory - Right Pulses Dorsalis Pedis 2 Scale (0,1,2,3,4,d) Circulatory - Left Pulses Dorsalis Pedis 2 Scale (0,1,2,3,4,d) Neurological State Oriented to time-place- Alert Moves all extremities person Respiration - General Respiration Rate SpO2 (%) (B/min) 20 97 Chronological Log Time Study Chronological Log 15:14:55 Patient arrived via Bed. 15:14:58 Patient Name, D.O.B, / Armband Verified By R.N. 15:15:00 Consent signed by the physician and the patient and verified by the Early Interventionist staff. 15:15:01 Pre-op and post- op instructions given; patient acknowledges understanding of instructions. 15:15:03 Verbal Stimulation=2 Physical Stimulation=2 Airway=2 Respiration=2 TOTAL=10. (0=absent, 1=l imited, 2=present) 15:24:00 Anesthesia at bedside. Assumes care of patient. Basilio IUSS ANALYST 15:31:15 Immediate Presedation assesment performed by physician. 15:31:17 Patient has been NPO for More than 6Hrs. 15:31:19 Skin Breakdown- none 15:31:26 Patient Warmer Placed on the Table. 15:31:27 Disposable Defibrillator Pads Placed On Patient. 15:31:36 Radha Prominences Protected 15:31:38 A # 20 IV was noted in the Antecubital (left). Grade = ~GRADE~ 15:31:47 A # 20 IV was noted in the Antecubital (right). Grade = ~GRADE~ IV Solutions given in lab by Gunjan Chowdhury BSRN in Left Antecubital via Peripheral IV. Pump /Drip Flow = 50 ml/hr 15:32:16 using NaCl .9. Ordered by Josep Medina. Reason: As per physicians verbal order. IV Solutions given in lab by Gunjan Chowdhury BSRN in Right Antecubital via Peripheral IV. Pum p/Drip Flow = 50 ml/hr 15:32:43 using NaCl .9. Ordered by Josep Medina. Reason: As per physicians verbal order. 15:33:03 History and physical on the chart or being dictated. Assessment: Initial Case, VU=546 BPM, CXSN=495/83 mmhg, Edema=None, Color=Normal, Skin = Warm, Dry 15:33:05 Neurological: State=Alert, Ox3, RIVERA Respiration: Resp=20 B/min, SpO2=96 % 15:33:29 Table restraints applied according to hospital policy 15:33:31 Right groin prepped with 2% chlorhexidine, and with a 3 min. waiting time. 15:33:35 Left groin prepped with 2% chlorhexidine, and with a 3 min. waiting time. 15:47:59 Indwelling uretheral catheter inserted with clear yellow urine output noted. 100 mL/hr LEVAQUIN given in lab by Anesthesia, IUSS ANALYST in Right Antecubital via Peripheral IV. Pum p/Drip Flow = 0 15:50:56 ml/hr using NaCl .9 with a concentration of 500 in 100 ml. Ordered by Josep Medina. Reason : As per physicians verbal order. 15:51:27 Immediate Presedation assesment performed by physician. 15:54:18 Reference ECG taken Time Out. Correct patient, procedure, procedure equipment, site and side verified with physicia n present. Time 15:57:46 concurred by MD, individual staff and IUSS ANALYST. Time Out #2 - Consents verified, patient in correct position, all results are labled and displa yed, safety precautions 15:57:53 taken, antibiotics administered. Time out concurred by MD, individual staff and IUSS ANALYST in procedu re 15:57:55 Case Start 20 mL 1% XYLOCAINE given in lab by Anesthesia, IUSS ANALYST in Left Groin via Subcutaneous. Ordered by Josep Medina. 15:57:59 Reason: For pain. 15:58:13 Vascular access was obtained in the Fem Vein (left). 15:58:18 Vascular access was obtained in the Fem Vein (left). 15:58:18 Vascular access was obtained in the Fem Vein (left). 15:58:28 Vascular access was obtained in the Fem Art (left). 15:58:49 A SHEATH, EPS, FR6 FAST CATH FR 6 was advanced into the Fem Vein (left) using the Percutane ous technique. 15:59:03 A SHEATH, EPS, FR7 FAST CATH FR 7 was advanced into the Fem Vein (left) using the Percutane ous technique. 15:59:13 A SHEATH, FR10 SRI 11CM FR 10 was advanced into the Fem Vein (left) using the Percutaneo us technique. 15:59:25 A SHEATH, FR4.5 PRELUDE 11CM FR 4.5 was advanced into the Fem Art (left) using the Percutan eous technique. 20 mL 1% XYLOCAINE given in lab by Anesthesia, IUSS ANALYST in Right Groin via Subcutaneous. Ordered by Josep Medina. 15:59:43 Reason: As per physicians verbal order. 15:59:55 Vascular access was obtained in the Fem Vein (right). 16:00:09 A SHEATH, EPS, FR8 FAST CATH FR 8 was advanced into the Fem Vein (right) using the Percutan eous technique. 16:03:29 CHRIS begun at bedside by Dr. Medina 16:06:48 CHRIS completed. A CATHETER, JSN, QUAD BUNDLE FR 5 was advanced vis Fem Vein (left) and placed in the HIS. Place ment was 16:09:20 visually confirmed under fluoroscopy. A CATHETER, JSN, QUAD BUNDLE FR 5 was advanced vis Fem Vein (left) and placed in the CS. Placem ent was visually 16:09:31 confirmed under fluoroscopy. 16:09:55 CATHETER, ACUNAV FR10 ICE ([email or web address]) FR 10 Was Postioned. A SHEATH, FR8.5 STEERABLE SM 71CM BUNDLE 71CM was advanced into the Fem Vein (right) using the Percutaneous 16::34 technique. 16:13:50 [place] needle inserted. 93487 units HEPARIN given in lab by Anesthesia, IUSS ANALYST in Right Antecubital via Peripheral IV. Or dered by Adam 16:14:04 Josep. Reason: As per physicians verbal order. 16:14:34 Transseptal. 16:14:42 [place] needle removed. A CATHETER, FR7 OPTIMA SPIRAL BUNDLE FR7 was advanced vis Fem Vein (right) and placed in the LA . Placement 16:15:05 was visually confirmed under fluoroscopy. 16:15:18 Mapping begun. 16:22:25 Activated Clotting Time Drawn 16:25:03 [place] catheter removed. A CATHETER, TACTICATH ABLAT 65 BUNDLE was advanced vis Fem Vein (right) and placed in the LA. P lacement was 16:25:18 visually confirmed under fluoroscopy. 16:29:07 ACT (Normal Range 90-180) = 388 500 units/hr HEPARIN DRIP given in lab by Anesthesia, IUSS ANALYST in Right Antecubital via Peripheral IV. Pump/Drip Flow = 16:29:19 5 ml/hr [place] [address] units in 250 ml. Ordered by Josep Medina. 16:31:06 Ablation begun. 16:47:15 Activated Clotting Time Drawn 16:54:02 ACT (Normal Range 90-180) = 315 2000 units HEPARIN given in lab by Anesthesia, IUSS ANALYST in Right Antecubital via Peripheral IV. Ord ered by Josep Medina. 16:54:12 Reason: As per physicians verbal order. 16:54:31 Heparin gtt increased to 1000 units/hr. 17:02:53 Activated Clotting Time Drawn 17:03:01 Ablation catheter removed. Mapping catheter reinserted. 17:06:13 Stewart IUSS ANALYST taking over for Basilio IUSS ANALYST 20 mcg/min ISUPREL given in lab by Anesthesia, IUSS ANALYST in Right Antecubital via Peripheral IV. Pum p/Drip Flow = 300 17:06:56 ml/hr using NaCl .9 with a concentration of 1 mg in 250 ml. Ordered by Josep Medina. Reaso n: As per physicians verbal order. 17:11:39 ACT (Normal Range 90-180) = 371 17:16:27 Isuprel gtt turned off. Heparin gtt turned off. 17:17:00 Ablation completed. 40 mg PROTAMINE given in lab by Anesthesia, IUSS ANALYST in Right Antecubital via Peripheral IV. Ordere d by Josep Medina. 17:18:00 Reason: As per physicians verbal order. 17:18:[address] Medina 17:21:34 Ablation procedure performed: AFIB. 17:21:45 EP Procedure was performed. 17:21:53 PACU called. Spoke to Rozina 17:22:11 Sheath(s) left in place, will be removed in Holding Area. Sheaths sutured in and NS career manager d to sheaths at kvo rate. 17:22:24 Sterile dressing applied to site 17:22:26 No case complications noted. 17:22:30 Cine recording checked. 17:22:34 Bedside Report will be given. Assessment: Final Case, MP=480 BPM, DGWE=308/67 mmhg, Edema=None, Color=Normal, Skin = Warm, D ry Right Pulses: Nilson Ped=2 17:22:59 Left Pulses: Nilson Ped=2 Neurological: State=Alert, Ox3, RIVERA Respiration: Resp=20 B/min, SpO2=97 % 17:23:44 Defibrillator and ground pads removed. Skin intact. 17:25:00 Activated Clotting Time Drawn 17:30:10 ACT (Normal Range 90-180) = 128 17:30:27 Case End 17:40:00 [facility] in [facility] condition. End Study - Contrast Media Used In Study Contrast Total Opened (mL) Total Used (mL) Total Wasted (mL) Unspecified 0 0 0 End Study - Maximum Contrast Load Max Contrast Load (mL) 441.7 End Study - Radiation Exposure Fluoro Time (minutes) 1.2 End Study - Patient Disposition Complications Transferred To Interventional Outcome No Telemetry Bed successful
--- NOTE | 2017-06-27 17:40 | PD.CARD ---
Atrial Fibrillation Ablation PROCEDURE DATE: Jun 27, 2017 PROCEDURES PERFORMED: 1. Electrophysiology study on Isuprel infusion 2. CS cannulation 3. 3-D mapping 4. Transseptal approach 5. Right and left heart catheterization 6. Intracardiac echo 7. Radiofrequency ablation of atrial fibrillation 8. Pulmonary vein isolation 9. Posterior wall ablation 10. Mitral valve isolation 11. Mitral line creation 12. Left atrial tachycardia ablation 13. Roof line creation 14. Floor line creation 15. Anterior wall ablation INDICATIONS FOR THE PROCEDURE Ms. Odom is a 67-year-old Other female with hx of atrial fibrillation, previous ablation, very symptomatic, on anticoagulation who undergo electrophysiology study and ablation. The risks, the nature and the benefits of the procedure were clearly stated to her. The risks include pneumothorax, cardiac perforation, stroke, need for open heart surgery and even . The patient understood and agreed to proceed. DESCRIPTION OF THE PROCEDURE IN DETAIL As written informed consent was obtained prior to esophageal echocardiogram, the patient was kept on the table where she was prepped and draped in the usual sterile fashion. Conscious sedation was initiated and maintained throughout the procedure by the anesthesiologist. Once sedation was verified, the right and left inguinal areas were anesthetized with 2% Xylocaine. Using modified Seldinger technique, the left femoral vein was cannulated on three occasions, three guidewires were advanced. Over the wire a 6, 7 and a 10-[place]ican Hemaquet were advanced. Then the left femoral artery was cannulated on one occasion, one guidewire was advanced. Over the wire a 4-[place] Hemaquet was advanced. Then the right femoral vein was cannulated on one occasion, one guidewire was advanced. Over the wire a 8-[place] Hemaquet was advanced. Then under fluoroscopic guidance through the 6 and 7-[place]ican Hemaquet, two 5-Pu[place]ican Kyle curved quadripolar electrophysiology catheters were advanced and placed around the His as well as coronary sinus. Basic interval was measured. The patient was in atrial fibrillation. Through the 10-[place] Hemaquet, a Cordis Benavides AcuNav intracardiac echo catheter was advanced and placed at the right atrium. Multiple view was obtained. There is no pericardial effusion, pulmonary vein was seen, atrial septal was visualized. Then the 8-Pu[place]ican Hemaquet in the right femoral vein was exchanged for Agilis transseptal sheath that was placed all the way to the superior vena cava. Through the sheath a Babatunde needle was advanced, then the sheath, the dilator and the needle were progressed until foci engaged. Once engaged, the needle was advanced. RF was delivered for 2 seconds. I was able to cross into the left atrium. Once the needle crossed, the dilator was advanced. Once the dilator crossed, the sheath was advanced. Once the sheath crossed, the dilator and the needle were removed. At this point I did flood the system and fluid movement was seen in the left atrium the indicates the sheath is in good position. The patient already received 10,000 units of heparin. The goal is to keep an ACT around 350 during ablation. Then through the sheath a [place] 20 pulse circumferential catheter was advanced. Using [employer] endocardial solution mapping system, a two-dimensional configuration of the left atrium was obtained. Points were taken at the left superior and inferior veins, right superior and inferior veins, mitral valve, and appendages. Then through the sheath a [place]. [place] TactiCath 65cm 3.5mm irrigated tipped mapping and radiofrequency ablation catheter was advanced. Esophageal probe was placed temperature monitoring during ablation. When it increased to 0.5 degrees Celsius above baseline, I moved to a different area of the atrium. First I did isolate the left superior and inferior vein. I did make a big [place] around the veins. Posterior was ablated. Patient was in left atrial tachycardia and converted back into sinus rhythm. Then a roof line was created, a floor line was created, a mitral line was isolated, then the mitral valve was isolated. Then the right superior and inferior veins were isolated. I did remap the atrium. There is no significant signal in the atrium. I did pace at the distal pole of coronary sinus catheter up to a CL of 220. no tachycardia was induced. At this point I decided to proceed with cardioversion. At that point I did advance the circumferential catheter again into the vein. There was no signal into the vein, pacing from the vein showed no conduction to the atrium. Isuprel infusion was initiated at 20 mcg for over 10 minutes. No tachyarrhythmia was induced, post Isuprel no tachyarrhythmia was induced. At that point the procedure was complete. All catheters were removed, atrial septal sheath was exchanged for 9-Puerto Rican Hemaquet, intracardiac echo showed no pericardial effusion. There is still good flow in the pulmonary vein. The patient is going to be transferred to the recovery room. No incident report. The patient tolerated the procedure. Blood loss was minimal. FINDINGS 1. Electrocardiogram: At baseline the patient was in atrial fibrillation, post procedure the patient was in sinus rhythm. 2. Basic interval: Base cycle length was around 520. Post ablation she was around 960 milliseconds. AH at 70 and HV at 40 milliseconds. 3. Tachyarrhythmia: Atrial fibrillation was mapped and ablated. Atrial tachycardia was ablated. The ablation was successful. CONCLUSION Successful electrophysiology study, mapping, radiofrequency ablation of atrial fibrillation, left atrial tachycardia, pulmonary vein isolation, posterior ablation, mitral valve isolation, mitral line creation, roof line creation, floor line creation, left atrial tachycardia. COMMENTS AND RECOMMENDATIONS The patient is going to be transferred to the telemetry unit. Will be observed and when stable can be discharged home. Josep Medina MD Jun 27, 2017 17:40
[2017-06-27] MEDS ORDERED: DO NOT ADM ANY ANTICOAGULANT DRUGS PRN (18:00)
[2017-06-27] MEDS ORDERED: *ONDANSETRON 4 MG VIAL PERIprocedural Use ONLY ONE (18:11)
[2017-06-27] MEDS: METOCLOPRAMIDE HCL 10 MG/2 ML VIAL IV PUSH PRN (18:32)
[2017-06-27] MEDS: AMIODARONE 200 MG TAB PO SCH (21:24)
[2017-06-27] MEDS: APIXABAN 5 MG TABLET PO SCH (21:24)
[2017-06-28] VITALS (18 sets, daily range): BP systolic 117–125; BP diastolic 73–85; PULSE 62–92; RESP 20; TEMP 97.5–97.9; O2SAT 90–97
[2017-06-28] MEDS: CHLORHEXIDINE GLUCONATE 2 % 1 PACK (2 CLOTHS)(taper/protocol) TOPICAL SCH (04:00)
[2017-06-28] MEDS: LEVOTHYROXINE SODIUM 88 MCG TAB PO SCH (05:23)
--- NOTE | 2017-06-28 07:50 | EKG ---
Date Performed: 06/27/2017 Time Performed: 18:04:53 PTAGE: 67 years EKG: Sinus rhythm WITH OCCASIONAL SUPRAVENTRICULAR PREMATURE COMPLEXES BORDERLINE ECG Since PREVIOUS TRACING , no significant change noted PREVIOUS TRACIN06/21/2017 23.50 DOCTOR: Elizabeth Kemp Interpretating Date/Time 06/28/2017 07:48:54
--- NOTE | 2017-06-28 08:10 | EKG ---
Date Performed: 06/28/2017 Time Performed: 06:08:30 PTAGE: 67 years EKG: Sinus rhythm Normal ECG Since PREVIOUS TRACING , no significant change noted PREVIOUS TRACIN06/27/2017 18.04 DOCTOR: Elizabeth Kemp Interpretating Date/Time 06/28/2017 08:09:36
[2017-06-28] MEDS: APIXABAN 5 MG TABLET PO SCH (08:58)
[2017-06-28] MEDS: AMIODARONE 200 MG TAB PO SCH (08:58)
[2017-06-28] MEDS: SODIUM CHLORIDE 0.9% FLUSH 10 ML FLUSH IV FLUSH SCH (08:58)
[2017-06-28] MEDS: ATORVASTATIN 40 MG TAB PO SCH ×2 (08:58→09:00)
--- NOTE | 2017-06-28 09:18 | HHI.PR ---
Subjective Remarks Tired Objective Vital Signs Date Time Temp Pulse Resp B/P (MAP) Pulse Ox O2 Delivery O2 Flow Rate FiO2 06/28/17 07:49 96 Room Air 06/28/17 07:21 97.9 84 20 121/78 (92) 96 06/28/17 07:00 84 06/28/17 06:06 91 06/28/17 05:06 85 06/28/17 04:30 84 06/28/17 03:00 97.5 81 117/73 (88) 96 06/28/17 03:00 88 06/28/17 02:00 88 06/28/17 01:00 92 06/28/17 00:00 92 06/27/17 23:00 97.9 92 106/75 (85) 96 06/27/17 23:00 91 06/27/17 22:00 92 06/27/17 21:00 92 06/27/17 20:00 Room Air 06/27/17 20:00 94 06/27/17 19:00 98.4 94 121/78 (92) 96 06/27/17 19:00 90 06/27/17 18:45 97.5 86 16 105/68 (80) 98 Nasal Cannula 2 06/27/17 18:30 85 15 104/70 (81) 97 Nasal Cannula 2 06/27/17 18:15 84 20 104/73 (83) 97 Nasal Cannula 2 06/27/17 18:00 80 18 102/69 (80) 96 Nasal Cannula 2 06/27/17 17:50 97.5 88 20 109/71 (84) 97 Nasal Cannula 2 06/27/17 16:50 93 21 06/27/17 14:00 112 06/27/17 13:11 18 128/64 06/27/17 13:00 110 06/27/17 12:00 118 06/27/17 12:00 120 18 142/92 (109) 93 06/27/17 11:51 98 06/27/17 11:00 120 06/27/17 10:00 124 I/O 06/27/17 06/27/17 06/27/17 06/28/17 06/28/17 06/28/17 06:59 14:59 22:59 06:59 14:59 22:59 Intake Total 480 ml 240 ml Output Total 600 ml 450 ml Balance -120 ml -210 ml Intake Oral 480 ml 240 ml Output Urine Total 600 ml 450 ml # Bowel Movements 0 Result Diagram: 06/25/17 1120 06/26/17 0323 Imaging Alert, fully oriented Lungs: ventilated Heart: S1, S2 regular, no gallop Abdomen: soft, no mass Ext: no edema Last Impressions Chest X-Ray 06/25/17 1119 Signed Impressions: Service Date/Time: Sunday, June 25, 2017 11:56 - CONCLUSION: 1. No acute cardiopulmonary findings. Rigoberto Richter MD Current Medications Medications (Trade) Dose Ordered Sig/Flores Route Start Time Stop Time Status Last Admin (NS Flush) 2 ml UNSCH PRN IVF 06/25/17 11:30 (NS Flush) 2 ml BID IV FLUSH 06/25/17 21:00 06/28/17 08:58 (Tylenol) 650 mg Q4H PRN PO 06/25/17 14:15 (Zofran Inj) 4 mg Q6H PRN IVP 06/25/17 14:15 (Narcan Inj) 0.4 mg UNSCH PRN IV PUSH 06/25/17 14:15 (Milk Of Magnesia Liq) 30 ml Q12H PRN PO 06/25/17 14:15 (Senokot) 17.2 mg Q12H PRN PO 06/25/17 14:15 (Dulcolax Supp) 10 mg DAILY PRN RECTAL 06/25/17 14:15 (Lactulose Liq) 30 ml DAILY PRN PO 06/25/17 14:15 (Synthroid) 88 mcg DAILY@0600 PO 06/26/17 06:00 06/28/17 05:23 (Lipitor) 40 mg DAILY PO 06/26/17 09:00 06/27/17 07:57 Miscellaneous Information Patient in critical care unit? Ass... Q361D .XX 06/25/17 18:00 (Chlorhexidine 2% Cloth) 3 pack DAILY@04 TOPICAL 06/26/17 04:00 06/30/17 04:01 06/26/17 04:00 (Chlorhexidine 2% Cloth) 3 pack UNSCH PRN TOPICAL 06/25/17 18:00 06/30/17 17:53 (Ativan) 0.5 mg Q8H PRN PO 06/27/17 08:15 06/27/17 09:44 (Percocet 5-325 Mg) 1 tab Q4H PRN PO 06/27/17 17:30 (Percocet 5-325 Mg) 2 tab Q4H PRN PO 06/27/17 17:30 06/28/17 00:41 (Ativan Inj) 0.5 mg UNSCH PRN IV PUSH 06/27/17 17:30 06/28/17 17:29 (Atropine Inj) 0.5 mg UNSCH PRN IV PUSH 06/27/17 17:30 Sodium Chloride 250 ml @ 500 mls/hr ONCE PRN IV 06/27/17 17:30 06/28/17 17:29 (Reglan Inj) 10 mg Q4H PRN IV PUSH 06/27/17 17:30 06/27/17 18:32 (Zofran Inj) 4 mg Q4H PRN IV PUSH 06/27/17 17:30 06/27/17 21:28 (Xylocaine 1% Inj (50 ml)) 10 ml UNSCH PRN INFIL 06/27/17 17:30 06/28/17 17:29 (Cordarone) 400 mg BID PO 06/27/17 21:00 07/02/17 20:59 06/28/17 08:58 (Eliquis) 5 mg BID PO 06/27/17 21:00 06/28/17 08:58 Miscellaneous Information ALL NURSING DEPARTME... UNSCH PRN .XX 06/27/17 18:00 06/28/17 17:59 (Cordarone) 200 mg DAILY PO 07/03/17 09:00 Assessment and Plan Problem List: (1) Atrial fibrillation with RVR ICD Codes: I48.91 - Unspecified atrial fibrillation Status: Acute Plan: SP ablation. In sinsu rhythm Amio initiated yesterday Can be DH Follow up in 3-4 weeks Josep Medina MD Jun 28, 2017 09:18
[2017-06-28] MEDS: METOCLOPRAMIDE HCL 10 MG/2 ML VIAL IV PUSH PRN (09:37)
--- NOTE | 2017-06-28 14:57 | HHI.DCPOC ---
Discharge Care Plan Diagnosis: (1) Atrial fibrillation (2) Atrial fibrillation with RVR (3) S/P ablation of atrial fibrillation Additional Problems Racing heartbeat Goals to Promote Your Health * To prevent worsening of your condition and complications * To maintain your health at the optimal level Directions to Meet Your Goals Take your medications as prescribed Follow your dietary instruction Follow activity as directed Keep your appointments as scheduled Take your immunizations and boosters as scheduled If your symptoms worsen call your PCP, if no PCP go to Urgent Care Center or Emergency Room Smoking is Dangerous to Your Health. Avoid second hand smoke Call the 24-hour hour crisis hotline for domestic abuse at Jose King MD Jun 28, 2017 14:57
[2017-06-28] MEDS ORDERED: AMIO200T PO ×2 (15:00)
[2017-06-28] MEDS ORDERED: METO5TAB PO (15:02)
--- NOTE | 2017-06-28 15:06 | HHI.DS ---
Discharge Summary Admission Date Jun 25, 2017 at 12:46 Discharge Date: Jun 28, 2017 Admitting Diagnosis atrial flutter, RVR, atrial fibrillation (1) Hypothyroidism ICD Code: E03.9 - Hypothyroidism, unspecified (2) Hyperlipidemia ICD Code: E78.5 - Hyperlipidemia, unspecified (3) Atrial fibrillation with RVR ICD Code: I48.91 - Unspecified atrial fibrillation Status: Acute (4) Atrial fibrillation and flutter ICD Code: I48.91 - Unspecified atrial fibrillation; I48.92 - Unspecified atrial flutter Status: Acute (5) Chest pain ICD Code: R07.9 - Chest pain, unspecified Status: Resolved Procedures Successful electrophysiology study, mapping, and radiofrequency ablation of atrial fibrillation. Brief History - From Admission Written by JOCELYN Barlow acting as scribe for Dr. Sanford on at 13:44. This is a 67yo female with a PMHX significant for atrial fibrillation on Eliquis s/p ablation 11/2016, prediabetes, hypothyroidism and HLD who presents to [facility] with complaints of chest pain, palpitations, dizziness, dyspnea and nausea occurring intermittently for the past week which became much more severe this past Sunday. Patient states she went for a walk with her this morning and after walking on 30 yards she had to stop due to severe shortness of breath. She reports associated sharp chest pain with radiation into the jaw and pressure like sensation in the throat. She also reports a headache. Patient denies any recent illness, fever or chills. In the ED, she was found to be in atrial fibrillation with RVR with HR of 131. Patient was started on Cardizem drip with improvement in her HR. Patients initial troponin was <0.02. Patient states she feels much better now. She denies any complaints at present. Dr. Estrada spoke with Dr. Harris the patients superintendent container terminal who has recommended the patient been seen in consultation by Dr. Medina. Patient states she was previously on Amiodarone but has been off that medication for the past 3 months. CBC/BMP: 06/25/17 1120 06/26/17 0323 Significant Findings Laboratory Tests Test 06/25/17 17:30 06/25/17 21:00 06/26/17 03:23 Troponin I LESS THAN 0.02 NG/ML LESS THAN 0.02 NG/ML Creatinine 1.29 MG/DL (0.50-1.00) Random Glucose 108 MG/DL (74-106) Estimat Glomerular Filtration Rate 41 ML/MIN (>89) Thyroid Stimulating Hormone 3rd Gen 4.370 uIU/ML (0.358-3.740) Imaging Last Impressions Chest X-Ray 06/25/17 1119 Signed Impressions: Service Date/Time: Sunday, June 25, 2017 11:56 - CONCLUSION: 1. No acute cardiopulmonary findings. Rigoberto Richter MD PE at Discharge Patient lying in bed, sleeping, easily awoken After waking, is oriented and alert, in no acute distress Heart rate is regular Hospital Course Patient was admitted, electrophysiology was consulted for her arrhythmias which were deemed to be atrial fibrillation. She underwent an electrophysiology study and had radiofrequency ablation of atrial fibrillation performed along with pulmonary vein isolation. Patient tolerated the procedure well and her heart rate remained stable afterwards, she was started on amiodarone. Patient was tolerating by mouth intake well and was clinically stable for discharge from cardiology standpoint. Patient has met maximum benefit from hospitalization and is clinically stable for discharge. Pt Condition on Discharge: Stable Discharge Disposition: Discharge Home Discharge Time: > 30 minutes Discharge Instructions DIET: Follow Instructions for: Heart Healthy Diet Activities you can perform: Regular-No Restrictions Follow up Referrals: Cardiology - 2 Weeks with Josep Medina MD PCP Follow-up - 1 Week New Medications: Metoclopramide (Metoclopramide) 5 Mg Tab 5 MG PO TID PRN for NAUSEA, #30 TAB 0 Refills Amiodarone (Amiodarone) 200 Mg Tab 400 MG PO BID for heart rhythm, #10 TAB Amiodarone (Amiodarone) 200 Mg Tab 200 MG PO DAILY for heart rate, #30 TAB start after 400 mg regimen completed Continued Medications: Apixaban (Eliquis) 5 Mg Tab 5 MG PO BID for Blood Clot Prevention, #60 TAB 0 Refills Levothyroxine (Levothyroxine) 75 Mcg Tab 88 MCG PO DAILY for Thyroid, #30 TAB 0 Refills Rosuvastatin (Crestor) 20 Mg Tab 20 MG PO DAILY for Cholesterol Management, #30 TAB 0 Refills Jose King MD Jun 28, 2017 15:06
[2017-07-03] MEDS ORDERED: AMIODARONE 200 MG TAB PO SCH (09:00)
== END 2017-06-28 16:59 | disposition home or self-care (01) | DRG 274 ==
LOC: NEPC 10:49 → NEDA 12:46 → HIMW 16:50 → HCIS 06-26 18:58
PROVIDERS: ADMIT Hospitalist; ATTEND Hospitalist
PROC: 02573ZK Destruction of Left Atrial Appendage, Percutaneous Approach (ICD-10-PCS; 2017-06-27)
PROC: 4A023FZ Measurement of Cardiac Rhythm, Percutaneous Approach (ICD-10-PCS; 2017-06-27)
PROC: 4A0234Z Measurement of Cardiac Electrical Activity, Percutaneous Approach (ICD-10-PCS; 2017-06-27)
PROC: 4A023N8 Measurement of Cardiac Sampling and Pressure, Bilateral, Percutaneous Approach (ICD-10-PCS; 2017-06-27)
PROC: B246ZZZ Ultrasonography of Right and Left Heart (ICD-10-PCS; 2017-06-27)
PROC: 02583ZZ Destruction of Conduction Mechanism, Percutaneous Approach (ICD-10-PCS; principal; 2017-06-27 15:00)
DX: I48.91 Unspecified atrial fibrillation (principal); N17.9 Acute kidney failure, unspecified; E03.9 Hypothyroidism, unspecified; R73.03 Prediabetes; E78.5 Hyperlipidemia, unspecified; I48.92 Unspecified atrial flutter; Z79.01 Long term (current) use of anticoagulants; Z87.891 Personal history of nicotine dependence
CPT/HCPCS: 71010; 80048; 82550; 82552; 83036; 83735; 84443; 84484; 85002; 85025; 85610; 85730; 87641; 93005; 93312; 93320; 93325; 93613; 93623; 93656; 93662; 96365; 96375; C1730; C1731; C1732; C1759; C1766; C2630; J1644; J1956; J2250; J2370; J2405; J2710; J2720; J2765; J3010; J7050